=== PATIENT | female | born 1970 | race African-American/Black ===

== ENCOUNTER 2016-12-01 18:10 | Emergency (ER) | payer OTHER ==
[~2016-12-01] VITALS: Ht 165.1 cm; Wt 77.1 kg
[~2016-12-01 18:10] MED LIST: AFRIN15 ML NASAL; ALBUTEROL SULF8.5 GM INH; AMOXICILLIN500 MG ORAL; AZITHROMYCIN250 MG ORAL; BENADRYL25 MG ORAL; BENADRYL25 MG PO; BENTYL10 MG ORAL; CEPHALEXIN500 MG ORAL; CIPROFLOXACIN500 M2 ORAL; CLINDAMYCIN HC300 MG ORAL; CYCLOBENZAPRINE10 MG ORAL; DEBROX15 M1 OT; FLUCONAZOLE150 MG ORAL; HYDROCORTISONE28 G2 TP; IBUPROFEN200 M2 ORAL; IBUPROFEN600 MG ORAL; LEVAQUIN500 MG ORAL; LIDOCAINE5 GM TP; METROGEL-VAGINA70 G1 VG; MOTRIN600 MG ORAL; MUCINEX1200 MG PO; NAPROSYN500 M1 ORAL; NITROFURANTOIN100 M2 ORAL; NKM; NORCO 5-325 TA1 EACH ORAL; PERCOCET 5-3251 EACH ORAL; PHENAZOPYRIDIN200 MG ORAL; PREDNISONE20 MG ORAL; TRAMADOL HCL50 MG ORAL; TYLENOL EXTRA500 MG ORAL; ZOFRAN4 MG ORAL
[2016-12-01 18:20] VITALS: BP 138/84
--- NOTE | 2016-12-01 18:46 | Emergency Room Report ---
History of Present Illness General Chief Complaint: Edema Source: Patient Present Illness HPI 46 YO Female presents to the ED c/o Burning and tingling sensation in the bilateral feet x 1.5 weeks. denies hx of DM, denies trauma. Patient states she believes she a normal diet, and does not take daily multivitamin. Patient denies bleeding from the, skin color changes, increase in temperature palpation to the lower extremities. Patient reports that at her job she stands and walks for many hours at a time and notices that the end of the day her feet are typically swollen. PT states feet are sensitive and burning sensations will awake her from her sleep. Pt. denies hx of gout. Patient states that today her feet have bilateral burning sensation where she could not even tolerate wearing her tennis shoes. Denies gross loss of sensation or gross motor movements of the extremities, incontinence of bowel or bladder. Denies CP, Palpitations, LOC, AMS, dizziness, Changes in Vision, Sensation, paresthesias, or a sudden severe headache. Allergies: Coded Allergies: NO KNOWN ALLERGIES (Unverified Allergy, Unknown, 08/23/15) Patient History Past Medical History: see triage record Past Surgical History: none Pertinent Family History: none Last Menstrual Period: 11/08/2016 Now: No : 5 Para: 2 Immunizations: UTD Reviewed Nursing Documentation: PMH: Agreed, PSxH: Agreed Nursing Documentation-PMH Past Medical History: No History, Except For Hx Gastrointestinal Problems: No - Rt ovarian cyst Review of Systems All Other Systems: negative except mentioned in HPI - ROS was limited due to Poor pt. cooperation Physical Exam Vital Signs Date Time Temp Pulse Resp B/P Pulse Ox O2 Delivery O2 Flow Rate FiO2 12/01/16 18:20 98.4 78 14 138/84 100 Room Air Sp02 EP Interpretation: reviewed, normal General Appearance: no apparent distress, alert, GCS 15, non-toxic Head: normocephalic, atraumatic Eyes: bilateral eye PERRL, bilateral eye normal inspection ENT: hearing grossly normal, normal pharynx, no angioedema, normal voice Neck: full range of motion, supple/symm/no masses Respiratory: lungs clear, normal breath sounds, speaking full sentences Cardiovascular #1: regular rate, rhythm, no edema, normal capillary refill Musculoskeletal: back normal, gait/station normal, normal range of motion, other - no rashes, pt. is vascularly intact, no obvious swelling, no evidence to suggest infection., tender - TTP to superficial light touch of the Skin , no bony ttp, no obvious deformities. Neurologic: alert, oriented x3, responsive, motor strength/tone normal, sensory intact, normal gait, speech normal Psychiatric: judgement/insight normal, memory normal, mood/affect normal, no suicidal/homicidal ideation Skin: normal color, no rash, warm/dry, well hydrated, other - no rashes, pt. is vascularly intact, no obvious swelling, no evidence to suggest infection. Medical Decision Making PA Attestation Dr. Garber is my supervising Physician whom patient management has been discussed with. Diagnostic Impression: Primary Impression: Paresthesia ER Course 46 YO Female presents to the ED c/o Burning and tingling sensation in the bilateral feet x 1.5 weeks. denies hx of DM, denies trauma. Patient states she believes she a normal diet, and does not take daily multivitamin. Patient denies bleeding from the, skin color changes, increase in temperature palpation to the lower extremities. Patient reports that at her job she stands and walks for many hours at a time and notices that the end of the day her feet are typically swollen. Patient states that today her feet have bilateral burning sensation where she could not even tolerate wearing her tennis shoes. Ddx considered but are not limited to Neuropathy, paresthesia, electrolyte imbalance, , stroke, DVT, cyanocobalamin deficiency. Vital signs: are WNL, pt. is afebrile H&PE are most consistent with paresthesias of the LE's bilaterally , no rashes , pt. is vascularly intact, no obvious swelling, no evidence to suggest infection. ORDERS: -AccuCheck: 109 ED INTERVENTIONS: -Gabapentin PO - D/w pt. to follow up with Neurologist if conservative treatment does not relieve symptoms or for further evaluation. DISCHARGE: At this time pt. is stable for d/c to home. Will provide printed patient care instructions, and any necessary prescriptions. Care plan and follow up instructions have been discussed with the patient prior to discharge. Last Vital Signs Date Time Temp Pulse Resp B/P Pulse Ox O2 Delivery O2 Flow Rate FiO2 12/01/16 18:30 80 16 Room Air 12/01/16 18:20 98.4 138/84 100 Disposition: HOME, SELF-CARE Condition: Stable Scripts Ibuprofen* (MOTRIN*) 600 Mg Tablet 600 MG ORAL THREE TIMES A DAY, #30 TAB 0 Refills Prov: Tiffani Barreto 12/01/16 Gabapentin* (GABAPENTIN*) 100 Mg Capsule 100 MG ORAL BID for 14 Days, #28 CAP Prov: Tiffani Barreto 12/01/16 Multivitamins* (MULTIVITAMINS*) 1 Each Tablet 1 TAB ORAL DAILY for 30 Days, #30 TAB 0 Refills Prov: Tiffani Barreto 12/01/16 Patient Instructions: Paresthesia, [id number], Peripheral Edema Additional Instructions: Take medications as directed. Follow up with PCP in 3-5 days, NEUROLOGIST Consultation is recommended. Return sooner to ED if new symptoms occur, or current symptoms become worse. - Please note that this Emergency Department Report was dictated using [employer] setter technology software, occasionally this can lead to erroneous entry secondary to interpretation by the dictation equipment. Tiffani Barreto Dec 01, 2016 18:46
[2016-12-01] MEDS ORDERED: IBUPROFEN600 MG ORAL (19:10)
[2016-12-01] MEDS ORDERED: GABAPENTIN100 MG ORAL (19:10)
[2016-12-01] MEDS ORDERED: MULTIVITAMINS1 EAC2 ORAL (19:10)
[2016-12-01 19:20] VITALS: BP 130/80
== END 2016-12-01 19:22 | disposition home or self-care (01) ==
LOC: EMR 19:15
DX: R20.9 Unspecified disturbances of skin sensation (principal)
CPT/HCPCS: 82962; 99284

== ENCOUNTER 2017-02-23 15:36 | Emergency (ER) | payer OTHER ==
[~2017-02-23] VITALS: Ht 162.6 cm; Wt 82.6 kg
[~2017-02-23 15:36] MED LIST changes: +GABAPENTIN100 MG ORAL; +MULTIVITAMINS1 EAC2 ORAL
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
[2017-02-23 16:17] VITALS: BP 126/88
[2017-02-23 17:20] VITALS: BP 124/82
[2017-02-23] MEDS ORDERED: IBUPROFEN600 MG ORAL (17:21)
[2017-02-23 17:30] VITALS: BP 126/88
--- NOTE | 2017-02-24 09:44 | Diagnostic Imaging Report ---
Indication: Left forearm pain Technique: XRAY FOREARM 2 VIEWS LEFT Comparison: None Findings: There is no gross fracture or dislocation. Bone mineralization is normal. Soft tissues are grossly unremarkable. Impression: No gross fracture or dislocation.
--- NOTE | 2017-02-26 08:39 | Diagnostic Imaging Report ---
Indication: Left hand pain Technique: XRAY HAND MIN 3V LEFT Comparison: None Findings: Examination is not optimized for evaluation of the wrist. There is no gross fracture or dislocation. Bone mineralization is normal. Soft tissues are grossly unremarkable. Impression: No gross fracture or dislocation. Clinical correlation recommended.
== END 2017-02-23 17:30 | disposition home or self-care (01) ==
LOC: EMR 16:30
DX: M79.632 Pain in left forearm (principal); M79.642 Pain in left hand; V49.40XA Driver injured in collision with unspecified motor vehicles in traffic accident, initial encounter; Y92.410 Unspecified street and highway as the place of occurrence of the external cause
CPT/HCPCS: 99284

== ENCOUNTER 2017-02-25 20:33 | Emergency (ER) | payer OTHER ==
[~2017-02-25] VITALS: Ht 162.6 cm; Wt 82.6 kg
[2017-02-25 20:53] VITALS: BP 148/79
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
[2017-02-25] MEDS ORDERED: Ketorolac 60mg Inj IM ONE (21:30)
[2017-02-25] MEDS ORDERED: ACETAMINOPHEN-1 EAC1 ORAL (21:48)
[2017-02-25 21:56] VITALS: BP 128/72
[2017-02-25 21:57] VITALS: BP 128/72
--- NOTE | 2017-02-26 09:06 | Diagnostic Imaging Report ---
Indication: Chest pain Technique: Single portable AP view of the chest. Findings: Comparison: 09/28/2014 The bones and extra pulmonary soft tissues, cardiomediastinal silhouette, pulmonary vasculature and parenchyma, and pleural surfaces remain unremarkable. IMPRESSION: Negative portable AP chest, unchanged.
== END 2017-02-25 22:01 | disposition home or self-care (01) ==
LOC: EMR 21:10
DX: R07.89 Other chest pain (principal); R05 Cough
CPT/HCPCS: 71010; 96372; 99283

== ENCOUNTER 2017-04-18 22:13 | Emergency (ER) | payer SELFPAY ==
[~2017-04-18] VITALS: Ht 160 cm; Wt 81.6 kg
[~2017-04-18 22:13] MED LIST changes: +ACETAMINOPHEN-1 EAC1 ORAL
[2017-04-18 22:30] VITALS: BP 105/63
[2017-04-18] MEDS ORDERED: Ketorolac 30mg Inj IV ONE (22:45)
--- NOTE | 2017-04-18 22:46 | Emergency Room Report ---
History of Present Illness General Chief Complaint: General Complaint Source: Patient Present Illness HPI Patient presents with 3 days of bilateral ankle pain. She states is severe. Burning. Doesn't radiate into her calfs. She's had this once before but not as severe. She had to leave work yesterday because the pain was so severe. She was able to drive herself here. She has no history of gout or arthritis. Has family history of arthritis. She denies any kidney or cardiac disease. She tried taking ibuprofen earlier today. This helped a little bit with the pain. Denies any fevers or shortness of breath. 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 Reviewed Nursing Documentation: PMH: Agreed, PSxH: Agreed Nursing Documentation-PMH Past Medical History: No Stated History Hx Gastrointestinal Problems: No - Rt ovarian cyst Review of Systems All Other Systems: negative except mentioned in HPI Physical Exam Vital Signs Date Time Temp Pulse Resp B/P Pulse Ox O2 Delivery O2 Flow Rate FiO2 04/18/17 22:20 86 16 105/63 99 Room Air Sp02 EP Interpretation: reviewed, normal General Appearance: well appearing, no apparent distress, GCS 15 Head: normocephalic Eyes: bilateral eye PERRL, bilateral eye normal inspection ENT: moist mucus membranes Neck: supple Respiratory: lungs clear, normal breath sounds Cardiovascular #1: regular rate, rhythm Cardiovascular #2: 2+ radial (R) Gastrointestinal: normal inspection, normal bowel sounds, non tender, no mass, non-distended Musculoskeletal: back normal, digits/nails normal, swelling - bilateral ankles Neurologic: alert, oriented x3, grossly normal Psychiatric: mood/affect normal Skin: normal inspection, warm/dry, other - no erythema or warmth of ankles Medical Decision Making Diagnostic Impression: Primary Impression: Bilateral ankle pain Qualified Codes: M25.571 - Pain in right ankle and joints of right foot; M25.572 - Pain in left ankle and joints of left foot Additional Impression: Suspicion of pseudogout ER Course The patient has bilateral ankle pain. There is some swelling there. Differential includes gout, pseudogout was tendinitis, congestive heart failure or renal failure. Evaluation needs to be undertaken with labs and uric acid. The patient be treated with Toradol and Colchicine. Uric acid normal. WBC elevated (though no clinical signs of infection). Xrays with effusions in ankles. Pain improved. Ambulatory. Patient stable for outpatient observation and treatment. Laboratory Tests Test 04/18/17 23:15 White Blood Count 14.1 K/UL (4.8-10.8) H Red Blood Count 4.18 M/UL (4.20-5.40) L Hemoglobin 11.8 G/DL (12.0-16.0) L Hematocrit 36.3 % (37.0-47.0) L Mean Corpuscular Volume 87 FL (80-99) Mean Corpuscular Hemoglobin 28.1 PG (27.0-31.0) Mean Corpuscular Hemoglobin Concent 32.4 G/DL (32.0-36.0) Red Cell Distribution Width 14.2 % (11.6-14.8) Platelet Count 591 K/UL (150-450) H Mean Platelet Volume 5.4 FL (6.5-10.1) L Neutrophils (%) (Auto) 67.5 % (45.0-75.0) Lymphocytes (%) (Auto) 21.5 % (20.0-45.0) Monocytes (%) (Auto) 6.6 % (1.0-10.0) Eosinophils (%) (Auto) 3.5 % (0.0-3.0) H Basophils (%) (Auto) 0.9 % (0.0-2.0) Sodium Level 137 mEQ/L (135-145) Potassium Level 3.3 mEQ/L (3.4-4.9) L Chloride Level 98 mEQ/L (98-107) Carbon Dioxide Level 29 mEQ/L (20-30) Anion Gap 10 (5-15) Blood Urea Nitrogen 5 mg/dL (7-23) L Creatinine 0.8 mg/dL (0.5-0.9) Estimate Glomerular Filtration Rate > 60 mL/min (>60) Glucose Level 117 mg/dL (74-106) H Uric Acid 5.2 mg/dL (3.0-7.5) Calcium Level 9.1 mg/dL (8.6-10.2) Total Bilirubin < 0.2 mg/dL (0.0-1.2) Aspartate Amino Transferase (AST) 13 U/L (5-40) Alanine Aminotransferase (ALT) 7 U/L (3-33) Alkaline Phosphatase 131 U/L (35-104) H Total Creatine Kinase 137 U/L (26-140) Pro-B-Type Natriuretic Peptide 22 pg/mL (0-125) Total Protein 7.4 g/dL (6.6-8.7) Albumin 4.1 g/dL (3.5-5.2) Globulin 3.3 g/dL Albumin/Globulin Ratio 1.2 (1.0-2.7) Other X-Ray Diagnostic Results Other X-Ray Diagnostic Results #1: X-Ray ordered: ankle L # of Views/Limited Vs Complete: 3 View Indication: Pain Interpretation: no dislocation, no fractures, other - effusion Impression: Other Interpreting ER Provider: electronic sign Cosme Teresa MD Other X-Ray Diagnostic Results #2: X-Ray ordered: ankle R # of Views/Limited Vs Complete: 3 View Indication: Pain Interpretation: no dislocation, no fractures, other - effusion Impression: Other Interpreting ER Provider: electronic sign Cosme Teresa MD Last Vital Signs Date Time Temp Pulse Resp B/P Pulse Ox O2 Delivery O2 Flow Rate FiO2 04/19/17 01:40 98.1 81 13 111/65 99 Room Air Status: improved Disposition: HOME, SELF-CARE Condition: Improved Scripts Ibuprofen* (MOTRIN*) 600 Mg Tablet 600 MG ORAL Q8H Y for For Pain, #20 TAB 0 Refills Prov: Cosme Teresa M.D. 04/19/17 Colchicine (Colchicine) 0.6 Mg Capsule 0.6 MG PO Q6HR Y for pain and swelling, #20 CAP Prov: Cosme Teresa M.D. 04/19/17 Tramadol Hcl* (ULTRAM*) 50 Mg Tablet 50 MG ORAL Q6H Y for For Pain, #10 TAB 0 Refills Prov: Cosme Teresa M.D. 04/19/17 Cosme Teresa M.D. Apr 18, 2017 22:46
[2017-04-18 23:35] LABS: BASOPHILS % (AUTO) 0.9 % (0.0-2.0); EOSINOPHILS % (AUTO) 3.5 % (0.0-3.0); LYMPHOCYTES % (AUTO) 21.5 % (20.0-45.0); MEAN CORPUSCULAR HEMOGLOBIN 28.1 PG (27.0-31.0); MEAN CORPUSCULAR HGB CONC 32.4 G/DL (32.0-36.0); MEAN CORPUSCULAR VOLUME 87 FL (80-99); MEAN PLATELET VOLUME 5.4 FL (6.5-10.1); MONOCYTES % (AUTO) 6.6 % (1.0-10.0); NEUTROPHILS % (AUTO) 67.5 % (45.0-75.0); PLATELET COUNT 591 K/UL (150-450); RED BLOOD COUNT 4.18 M/UL (4.20-5.40); RED CELL DISTRIBUTION WIDTH 14.2 % (11.6-14.8); WHITE BLOOD COUNT 14.1 K/UL (4.8-10.8)
[2017-04-19 00:09] LABS: ALANINE AMINOTRANSFERASE 7 U/L (3-33); ALBUMIN/GLOBULIN RATIO 1.2 (1.0-2.7); ANION GAP 10 (5-15); ASPARTATE AMINO TRANSFERASE 13 U/L (5-40); CALCIUM 9.1 mg/dL (8.6-10.2); CARBON DIOXIDE 29 mEQ/L (20-30); CHLORIDE 98 mEQ/L (98-107); CREATININE 0.8 mg/dL (0.5-0.9); GLOMERULAR FILTRATION RATE > 60 mL/min (>60); HEMOLYSIS 0; POTASSIUM 3.3 mEQ/L (3.4-4.9); SODIUM 137 mEQ/L (135-145); TOTAL PROTEIN 7.4 g/dL (6.6-8.7); URIC ACID 5.2 mg/dL (3.0-7.5)
[2017-04-19 00:30] VITALS: BP 109/69
[2017-04-19] MEDS ORDERED: COLCHICINE0.6 M1 PO (01:27)
[2017-04-19] MEDS ORDERED: IBUPROFEN600 MG ORAL (01:27)
[2017-04-19] MEDS ORDERED: TRAMADOL HCL50 MG ORAL (01:27)
[2017-04-19 01:40] VITALS: BP 111/65
--- NOTE | 2017-04-19 11:41 | Diagnostic Imaging Report ---
Indication: Pain right ankle Comparison: None Findings: 3 views of the right ankle obtained. No acute fracture, malalignment, periostitis, or osteochondral defects are identified. There is soft tissue swelling present. Impression: No acute fracture identified
--- NOTE | 2017-04-19 11:41 | Diagnostic Imaging Report ---
Indication: left ankle pain Comparison: None Findings: 3 views of the left ankle obtained. No acute fracture, malalignment, periostitis, or osteochondral defects are identified. Soft tissue swelling is present. Impression: No acute fracture.
== END 2017-04-19 01:40 | disposition home or self-care (01) ==
LOC: EMR 23:00
DX: M25.572 Pain in left ankle and joints of left foot (principal); M25.571 Pain in right ankle and joints of right foot
CPT/HCPCS: 36415; 73610; 80053; 82550; 83880; 84550; 85025; 96374; 99284; J1885

== ENCOUNTER 2017-05-06 20:12 | Emergency (ER) | payer SELFPAY ==
[~2017-05-06] VITALS: Ht 162.6 cm; Wt 81.6 kg
[~2017-05-06 20:12] MED LIST changes: +COLCHICINE0.6 M1 PO
[2017-05-06 20:30] VITALS: BP 120/73
[2017-05-06] MEDS ORDERED: NEURONTIN100 MG ORAL (21:13)
--- NOTE | 2017-05-06 21:14 | Emergency Room Report ---
History of Present Illness General Chief Complaint: Edema Source: Patient Present Illness HPI Is a 46-year-old female with no significant past medical history. She presents with chief complaint of bilateral swelling to the lower extremity. Worse by been in the day. Better when she rests an elevated. Denies any trauma. His been ongoing for couple months. She was here about 2 weeks ago and was told was gallops. Labs show normal BNP. Patient still having problem this was she came back. Did not fill any of her medication because her insurance didn't cover it. Allergies: Coded Allergies: NO KNOWN ALLERGIES (Unverified Allergy, Unknown, 08/23/15) Patient History Past Medical History: see triage record, old chart reviewed Past Surgical History: other Pertinent Family History: none Social History: Denies: smoking Last Menstrual Period: now Now: No Reviewed Nursing Documentation: PMH: Agreed, PSxH: Agreed Nursing Documentation-PMH Past Medical History: No Stated History Hx Gastrointestinal Problems: No - Rt ovarian cyst Review of Systems Eye: Denies: eye pain, blurred vision ENT: Denies: ear pain, nose congestion, throat swelling Respiratory: Denies: cough, shortness of breath Cardiovascular: Denies: chest pain, palpitations Gastrointestinal: Denies: abdominal pain, diarrhea, nausea, vomiting Musculoskeletal: Reports: joint pain, Denies: back pain Skin: Denies: rash Neurological: Denies: headache, numbness Endocrine: Denies: increased thirst, increased urine Hematologic/Lymphatic: Denies: easy bruising All Other Systems: negative except mentioned in HPI Physical Exam Vital Signs Date Time Temp Pulse Resp B/P (MAP) Pulse Ox O2 Delivery O2 Flow Rate FiO2 05/06/17 20:26 98.2 82 20 120/73 100 Room Air vitals normal Sp02 EP Interpretation: reviewed, normal General Appearance: well appearing, no apparent distress, alert Head: normocephalic, atraumatic Eyes: bilateral eye PERRL, bilateral eye EOMI ENT: hearing grossly normal, normal pharynx Neck: full range of motion, supple, no meningismus Respiratory: chest non-tender, lungs clear, normal breath sounds Cardiovascular #1: regular rate, rhythm, no murmur Gastrointestinal: normal bowel sounds, non tender, no mass, no organomegaly, no bruit, non-distended Musculoskeletal: back normal, gait/station normal, normal range of motion, other - There is some puffiness to bilateral lateral malleoli. No edema however. No pitting edema. Full range of motion. Joints stable. No tenderness. Psychiatric: mood/affect normal Skin: warm/dry Medical Decision Making Diagnostic Impression: Primary Impression: Peripheral edema ER Course Patient with peripheral edema. She show me a picture she took when the ankle was swollen. Again this is usually butt end of the day after working and standing on it. I see no evidence of DVT. No evidence of CHF. This is dependent edema. We'll discharge home. No evidence of gout either. No evidence of septic joint. Last Vital Signs Date Time Temp Pulse Resp B/P (MAP) Pulse Ox O2 Delivery O2 Flow Rate FiO2 05/06/17 20:30 82 20 Room Air 05/06/17 20:26 98.2 120/73 100 Status: unchanged Disposition: HOME, SELF-CARE Condition: Stable Scripts Gabapentin* (NEURONTIN*) 100 Mg Capsule 100 MG ORAL THREE TIMES A DAY, #30 CAP 0 Refills Prov: ZABRINA BLOUNT M.D. 05/06/17 Patient Instructions: Peripheral Edema Additional Instructions: Followup with your Dr. in 7 days. Elevate her leg. Recommend using a compression stocking when you work. This would help with the swelling. Return if symptom worsen. ZABRINA BLOUNT M.D. May 06, 2017 21:14
[2017-05-06 21:23] VITALS: BP 120/73
== END 2017-05-06 21:23 | disposition home or self-care (01) ==
LOC: EMR 21:10
DX: R60.9 Edema, unspecified (principal)
CPT/HCPCS: 99283

== ENCOUNTER 2017-06-24 16:52 | Emergency (ER) | payer SELFPAY ==
[~2017-06-24] VITALS: Ht 162.6 cm; Wt 79.4 kg
[~2017-06-24 16:52] MED LIST changes: +NEURONTIN100 MG ORAL
[2017-06-24] MEDS ORDERED: Dexamethasone 20mg/5ml IM ONE (17:30)
[2017-06-24] MEDS ORDERED: Metoclopramide 10mg/10ml Liq NG ONE (17:30)
[2017-06-24] MEDS ORDERED: Ketorolac 60mg Inj IM ONE (17:30)
--- NOTE | 2017-06-24 17:34 | Emergency Room Report ---
History of Present Illness General Chief Complaint: Headache Source: Patient Present Illness HPI Patient is a 47-year-old female who presents today with complaints of "feeling hot" and a headache for the last 3 days. Patient states her symptoms began after getting the flu shot several days ago. She states the headache is behind her eyes and 7/10 in severity. She has not taken medication for the pain. She denies any changes in vision, photophobia, nausea, vomiting or associated symptoms. Allergies: Coded Allergies: NO KNOWN ALLERGIES (Unverified Allergy, Unknown, 08/23/15) Patient History Last Menstrual Period: end may Now: No Reviewed Nursing Documentation: PMH: Agreed, PSxH: Agreed Nursing Documentation-PMH Past Medical History: No History, Except For Hx Gastrointestinal Problems: No - Rt ovarian cyst Review of Systems Neurological: Reports: headache All Other Systems: negative except mentioned in HPI Physical Exam Vital Signs Date Time Temp Pulse Resp B/P (MAP) Pulse Ox O2 Delivery O2 Flow Rate FiO2 06/24/17 17:04 98.2 76 18 132/85 98 Room Air Sp02 EP Interpretation: reviewed, normal General Appearance: no apparent distress, alert, GCS 15, non-toxic Head: normocephalic, atraumatic Eyes: bilateral eye normal inspection, bilateral eye PERRL ENT: hearing grossly normal, normal pharynx, no angioedema, normal voice Neck: full range of motion, supple/symm/no masses Respiratory: chest non-tender, lungs clear, normal breath sounds, speaking full sentences Cardiovascular #1: regular rate, rhythm, no edema Cardiovascular #2: 2+ carotid (R), 2+ carotid (L), 2+ radial (R), 2+ radial (L) , 2+ dorsalis pedis (R), 2+ dorsalis pedis (L) Gastrointestinal: normal bowel sounds, non tender, soft, non-distended, no guarding, no rebound Rectal: deferred Genitourinary: normal inspection, no CVA tenderness Musculoskeletal: back normal, gait/station normal, normal range of motion, non- tender, calf tenderness Neurologic: alert, oriented x3, responsive, 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 Pathak Diagnostic Impression: Primary Impression: Headache Additional Impression: Malaise ER Course Low index of suspicion for CVA or SAH as patient has no focal deficits and previous headaches stating this feels similar. Patient with a normal neurologic examination and headache improving after medications on reevaluation at 1835. Pt is discharged to home with fioricet and given resources for outpatient follow up. Reevaluation Time: 18:35 Last Vital Signs Date Time Temp Pulse Resp B/P (MAP) Pulse Ox O2 Delivery O2 Flow Rate FiO2 06/24/17 17:04 98.2 76 18 132/85 98 Room Air Status: improved Disposition: HOME, SELF-CARE Condition: Stable Scripts Acetamin/Butalbital/Caffeine* (FIORICET*) 1 Ea Tab 1 TAB ORAL Q6H, #15 TAB 0 Refills Prov: Lakeisha Choi 06/24/17 Patient Instructions: General Headache Without Cause Lakeisha Choi Jun 24, 2017 17:34
[2017-06-24 18:21] VITALS: BP 130/84
[2017-06-24] MEDS ORDERED: FIORICET1 EA ORAL (18:36)
[2017-06-24 18:43] VITALS: BP 130/84
== END 2017-06-24 18:45 | disposition home or self-care (01) ==
LOC: EMR 17:35
DX: R51 Headache (principal); R53.81 Other malaise
CPT/HCPCS: 81025; 96372; 99284; J1100

== ENCOUNTER 2017-09-01 18:01 | Emergency (ER) | payer SELFPAY ==
[~2017-09-01] VITALS: Ht 162.6 cm; Wt 77.1 kg
[~2017-09-01 18:01] MED LIST changes: +FIORICET1 EA ORAL
[2017-09-01] MEDS ORDERED: NKM (18:19)
[2017-09-01 19:08] LABS: BASOPHILS % (AUTO) 1.1 % (0.0-2.0); EOSINOPHILS % (AUTO) 2.7 % (0.0-3.0); LYMPHOCYTES % (AUTO) 24.2 % (20.0-45.0); MEAN CORPUSCULAR HEMOGLOBIN 26.3 PG (27.0-31.0); MEAN CORPUSCULAR HGB CONC 30.3 G/DL (32.0-36.0); MEAN CORPUSCULAR VOLUME 87 FL (80-99); MEAN PLATELET VOLUME 5.1 FL (6.5-10.1); MONOCYTES % (AUTO) 5.7 % (1.0-10.0); NEUTROPHILS % (AUTO) 66.3 % (45.0-75.0); PLATELET COUNT 555 K/UL (150-450); RED BLOOD COUNT 4.31 M/UL (4.20-5.40); RED CELL DISTRIBUTION WIDTH 13.3 % (11.6-14.8); WHITE BLOOD COUNT 12.6 K/UL (4.8-10.8)
[2017-09-01] MEDS ORDERED: Albuterol/Ipratropium 3ml neb HHN ONE (19:15)
[2017-09-01 19:22] LABS: ANION GAP 5 mmol/L (5-15); CALCIUM 7.9 MG/DL (8.5-10.1); CARBON DIOXIDE 32 MMOL/L (21-32); CHLORIDE 103 MMOL/L (98-107); CREATININE 0.9 MG/DL (0.55-1.30); GLOMERULAR FILTRATION RATE > 60 mL/min (>60); POTASSIUM 3.2 MMOL/L (3.5-5.1); SODIUM 139 MMOL/L (136-145)
[2017-09-01 19:34] LABS: ALANINE AMINOTRANSFERASE 12 U/L (12-78); ALBUMIN/GLOBULIN RATIO 0.8 (1.0-2.7); ASPARTATE AMINO TRANSFERASE 11 U/L (15-37); CKMB 1.3 NG/ML (0.0-3.6); TOTAL PROTEIN 7.6 G/DL (6.4-8.2)
[2017-09-01 19:52] LABS: APPEARANCE,URINE SLIGHTLY CLOUDY; KETONES,URINE NEGATIVE (NEGATIVE); LEUKOCYTE ESTERASE ,URINE 1+ (NEGATIVE); NITRITE,URINE NEGATIVE (NEGATIVE); PH,URINE 6 (4.5-8.0); PROTEIN,URINE NEGATIVE (NEGATIVE); UROBILINOGEN,URINE NORMAL MG/DL (0.0-1.0)
[2017-09-01 20:01] LABS: BACTERIA,URINE FEW /HPF; SQUAMOUS EPITHELIAL CELL,UR MODERATE /LPF (NONE/OCC)
[2017-09-01] MEDS ORDERED: KEFLEX500 MG ORAL (20:04)
[2017-09-01] MEDS ORDERED: PRILOSEC10 M1 ORAL (20:05)
[2017-09-01 20:14] VITALS: BP 124/61
[2017-09-01 20:58] VITALS: BP 117/67
--- NOTE | 2017-09-02 10:20 | Diagnostic Imaging Report ---
Indication: Chest pain, shortness of breath Technique: XRAY Chest 1v Comparison: 02/25/2017 Findings: Low lung volumes artifactually exaggerate heart size and vascular markings. Heart size and mediastinal contours are likely stable allowing for differences in technique. There is bronchovascular crowding in the lung bases. There is no definite focal consolidation, no pleural effusion or pneumothorax. No acute osseous abnormality seen. Impression: Limited exam as above. No definite radiographic evidence of acute cardiopulmonary disease. Repeat exam may be obtained for better evaluation as clinically indicated.
--- NOTE | 2017-09-02 14:50 | Cardiology Report ---
APPROVED REPORT EKG Measurement Heart [id number] Normal sinus rhythm Normal ECG
--- NOTE | 2017-09-03 07:22 | Emergency Room Report ---
History of Present Illness General Chief Complaint: Chest Pain Source: Patient Present Illness HPI Patient is a 47-year-old female presented after increased chest pain. The patient gradual onset of symptoms over the past 3 days. Patient was noted to have symptoms for the past 3 days. The patient had not been vomiting. She denies any fever. She reported having some nonproductive cough. She denied any leg pain or swelling. She denied travel. Allergies: Coded Allergies: NO KNOWN ALLERGIES (Unverified Allergy, Unknown, 08/23/15) Patient History Past Medical History: see triage record Last Menstrual Period: 08/13/17. Now: No Reviewed Nursing Documentation: PMH: Agreed, PSxH: Agreed Review of Systems All Other Systems: negative except mentioned in HPI Physical Exam Vital Signs Date Time Temp Pulse Resp B/P (MAP) Pulse Ox O2 Delivery O2 Flow Rate FiO2 09/01/17 18:17 98.1 77 17 141/90 100 Room Air 09/01/17 19:39 21 General Appearance: well appearing, no apparent distress, alert, GCS 15 Head: normocephalic, atraumatic ENT: hearing grossly normal, normal voice Neck: full range of motion, supple Respiratory: chest non-tender, lungs clear, no respiratory distress, speaking full sentences Musculoskeletal: no calf tenderness Neurologic: normal gait Psychiatric: mood/affect normal Skin: no rash Medical Decision Making Diagnostic Impression: Primary Impression: Chest pain Additional Impression: UTI (urinary tract infection) ER Course patient presented for chest pain. Differential diagnosis included but was not limited to acute coronary syndrome, pulmonary embolism, pneumonia, aortic dissection, shingles, pneumothorax, aortic dissection, esophageal rupture, pericarditis. Because of complexity of patient's case laboratory testing and imaging studies were ordered. Patient was given breathing treatments. She was given antibiotic. Laboratory testing showed evidence of a urinary infection.The patient's symptom time course and symptom are consistent with noncardiac chest pain. The patient is advised to follow up with primary care doctor in 1-2 days. Patient is advised to return if any worsening condition or if any changes in status that are concerning. This report is dictated with [employer] face and fill packer software which may occasionally lead to discrepancies related to use of this software. Labs Test 09/01/17 18:50 09/01/17 19:25 White Blood Count 12.6 K/UL (4.8-10.8) Red Blood Count 4.31 M/UL (4.20-5.40) Hemoglobin 11.3 G/DL (12.0-16.0) Hematocrit 37.4 % (37.0-47.0) Mean Corpuscular Volume 87 FL (80-99) Mean Corpuscular Hemoglobin 26.3 PG (27.0-31.0) Mean Corpuscular Hemoglobin Concent 30.3 G/DL (32.0-36.0) Red Cell Distribution Width 13.3 % (11.6-14.8) Platelet Count 555 K/UL (150-450) Mean Platelet Volume 5.1 FL (6.5-10.1) Neutrophils (%) (Auto) 66.3 % (45.0-75.0) Lymphocytes (%) (Auto) 24.2 % (20.0-45.0) Monocytes (%) (Auto) 5.7 % (1.0-10.0) Eosinophils (%) (Auto) 2.7 % (0.0-3.0) Basophils (%) (Auto) 1.1 % (0.0-2.0) D-Dimer 0.35 mg/L FEU (0.00-0.49) Sodium Level 139 MMOL/L (136-145) Potassium Level 3.2 MMOL/L (3.5-5.1) Chloride Level 103 MMOL/L (98-107) Carbon Dioxide Level 32 MMOL/L (21-32) Anion Gap 5 mmol/L (5-15) Blood Urea Nitrogen 6 mg/dL (7-18) Creatinine 0.9 MG/DL (0.55-1.30) Estimat Glomerular Filtration Rate > 60 mL/min (>60) Glucose Level 111 MG/DL (74-106) Calcium Level 7.9 MG/DL (8.5-10.1) Total Bilirubin 0.2 MG/DL (0.2-1.0) Aspartate Amino Transf (AST/SGOT) 11 U/L (15-37) Alanine Aminotransferase (ALT/SGPT) 12 U/L (12-78) Alkaline Phosphatase 119 U/L (46-116) Total Creatine Kinase 107 U/L (26-308) Creatine Kinase MB 1.3 NG/ML (0.0-3.6) Creatine Kinase MB Relative Index 1.2 Troponin I 0.002 ng/mL (0.000-0.056) Pro-B-Type Natriuretic Peptide 7 pg/mL (0-125) Total Protein 7.6 G/DL (6.4-8.2) Albumin 3.4 G/DL (3.4-5.0) Globulin 4.2 g/dL Albumin/Globulin Ratio 0.8 (1.0-2.7) Urine Color Pale yellow Urine Appearance Slightly cloudy Urine pH 6 (4.5-8.0) Urine Specific Catron 1.015 (1.005-1.035) Urine Protein Negative (NEGATIVE) Urine Glucose (UA) Negative (NEGATIVE) Urine Ketones Negative (NEGATIVE) Urine Occult Blood 2+ (NEGATIVE) Urine Nitrite Negative (NEGATIVE) Urine Bilirubin Negative (NEGATIVE) Urine Urobilinogen Normal MG/DL (0.0-1.0) Urine Leukocyte Esterase 1+ (NEGATIVE) Urine RBC 5-10 /HPF (0 - 2) Urine WBC 2-4 /HPF (0 - 2) Urine Squamous Epithelial Cells Moderate /LPF (NONE/OCC) Urine Bacteria Few /HPF (NONE) Urine HCG, Qualitative Negative EKG Diagnostic Results Rate: normal Rhythm: NSR ST Segments: no acute changes Last Vital Signs Date Time Temp Pulse Resp B/P (MAP) Pulse Ox O2 Delivery O2 Flow Rate FiO2 09/01/17 20:58 98.1 82 22 117/67 100 Room Air 21 Status: improved Disposition: HOME, SELF-CARE Condition: Stable Scripts Omeprazole Magnesium (PRILOSEC) 10 Mg Suspdr.pkt 10 MG ORAL DAILY, #30 PACKET Prov: Lorenzo Garber 09/01/17 Cephalexin* (KEFLEX*) 500 Mg Capsule 500 MG ORAL Q6H, #28 CAP 0 Refills Prov: Lorenzo Garber 09/01/17 Referrals: NOT CHOSEN IPA/MD,REFERRING (PCP) Patient Instructions: Nonspecific Chest Pain Lorenzo Garber Sep 03, 2017 07:22
== END 2017-09-01 21:00 | disposition home or self-care (01) ==
LOC: EMR 18:25
DX: R07.9 Chest pain, unspecified (principal); N39.0 Urinary tract infection, site not specified
CPT/HCPCS: 36415; 71010; 80053; 81003; 81025; 82550; 82553; 83880; 84484; 85025; 85379; 93005; 94640; 94664; 99284; J7620; J8499

== ENCOUNTER 2017-09-16 14:58 | Emergency (ER) | payer SELFPAY ==
[~2017-09-16] VITALS: Ht 162.6 cm; Wt 78.0 kg
[~2017-09-16 14:58] MED LIST changes: +KEFLEX500 MG ORAL; +PRILOSEC10 M1 ORAL
[2017-09-16] MEDS ORDERED: Ipratropium 0.02% Inh Soln 2.5ml UD HHN ONE (15:30)
[2017-09-16] MEDS ORDERED: Albuterol ud Inhalation HHN ONE (15:30)
[2017-09-16] MEDS ORDERED: PREDNISONE20 MG ORAL (16:47)
[2017-09-16] MEDS ORDERED: PROMETHAZINE-D118 ML ORAL (16:47)
[2017-09-16] MEDS ORDERED: IBUPROFEN600 MG ORAL (16:47)
[2017-09-16] MEDS ORDERED: PROAIR HFA8.5 GM INH (16:47)
[2017-09-16 17:02] VITALS: BP 125/75
--- NOTE | 2017-09-16 21:47 | Emergency Room Report ---
History of Present Illness General Chief Complaint: General Complaint Source: Patient Present Illness HPI The patient is a 47-year-old female presenting for 3 days of subjective fever, chills, cough. She denies medical history. She denies any known sick contacts or recent travel. She denies other symptoms including shortness of breath, chest pain, rash, neck pain or stiffness, myalgia, fatigue Allergies: Coded Allergies: NO KNOWN ALLERGIES (Unverified Allergy, Unknown, 08/23/15) Patient History Past Medical History: see triage record Pertinent Family History: none Last Menstrual Period: 08/16/17 Now: No Reviewed Nursing Documentation: PMH: Agreed, PSxH: Agreed Review of Systems All Other Systems: negative except mentioned in HPI Physical Exam Vital Signs Date Time Temp Pulse Resp B/P (MAP) Pulse Ox O2 Delivery O2 Flow Rate FiO2 09/16/17 15:05 98.2 81 17 136/81 100 Room Air 09/16/17 15:57 21 Sp02 EP Interpretation: reviewed, normal General Appearance: no apparent distress, alert, GCS 15, non-toxic Head: normocephalic, atraumatic Eyes: bilateral eye normal inspection, bilateral eye PERRL ENT: hearing grossly normal, normal pharynx, no angioedema, normal voice, uvula midline Neck: full range of motion, supple/symm/no masses Respiratory: chest non-tender, no retraction, no accessory muscle use, speaking full sentences, wheezing - bilat wheezing Cardiovascular #1: regular rate, rhythm, no edema Genitourinary: normal inspection, no CVA tenderness Musculoskeletal: back normal, gait/station normal, normal range of motion, non- tender Neurologic: alert, oriented x3, responsive, motor strength/tone normal, sensory intact, speech normal Psychiatric: judgement/insight normal, memory normal, mood/affect normal, no suicidal/homicidal ideation Skin: normal color, no rash, warm/dry, well hydrated Medical Decision Making PA Attestation Dr. Mock is my supervising physician. Patient management was discussed with my supervising physician Diagnostic Impression: Primary Impression: Bronchitis ER Course The patient is a 47-year-old female presenting for 3 days of subjective fever, chills, cough Differential diagnosis include but not limited to pharyngitis, sinusitis, AOM, bronchitis, PNA PE: afebrile. No tachypnea. No apparent distress. No TTP over maxillary or frontal sinuses. Lungs: diffuse wheezing. No accessory muscle use. No resp distress Heart: RRR, no abnormal heart sounds Ears: external auditory canal clear. Non erythematous. Bilat TM intact. Cone of light present bilat. No bulging of TM. No serous fluid seen. no nasal D/C Nor cervical lymphad No tonsillar exudate. Uvula midline.Oropharynx non erythematous The patient is given a breathing treatment and lung sounds have improved The patient will be discharged home with a prescription for albuterol, prednisone, cough medication, and will FU with PMD Last Vital Signs Date Time Temp Pulse Resp B/P (MAP) Pulse Ox O2 Delivery O2 Flow Rate FiO2 09/16/17 17:02 98.1 88 19 125/75 98 Room Air 09/16/17 17:02 21 Status: improved Disposition: HOME, SELF-CARE Condition: Improved Scripts Ibuprofen* (MOTRIN*) 600 Mg Tablet 600 MG ORAL Q8H Y for For Pain, #30 TAB 0 Refills Prov: TERZIANNINI P.A. 09/16/17 Prednisone* (PREDNISONE*) 20 Mg Tablet 20 MG ORAL DAILY for 5 Days, TAB 0 Refills Prov: TERZIAN,NINI P.A. 09/16/17 Albuterol Sulfate* (PROAIR HFA*) 8.5 Gm Hfa.aer.ad 2 PUFFS INH Q6H, #8.5 GM 0 Refills Prov: TERZIAN,NINI P.A. 09/16/17 D-Methorphan Hb/Prometh Hcl* (PROMETHAZINE-DM SYRUP*) 118 Ml Syrup 5 ML ORAL Q6H Y for For Cough, #118 ML 0 Refills Prov: TERZIAN,NINI P.A. 09/16/17 Patient Instructions: Acute Bronchitis Additional Instructions: I discussed my findings with the patient. All questions and concerns have been answered. Treatment and medication compliance have been addressed. I advised the patient that they need to follow up with PMD in 3-5 days. Return to ED if pain remains or worsens, cough worsens or remains, you notice blood in your sputum, you notice wheezing, you experience a fever, or if needed for any reason. Patient verbalized understanding of discharge instructions. NINI CAM Sep 16, 2017 21:47
== END 2017-09-16 17:02 | disposition home or self-care (01) ==
LOC: EMR 16:10
DX: J40 Bronchitis, not specified as acute or chronic (principal)
CPT/HCPCS: 94640; 94664; 99284

== ENCOUNTER 2017-09-20 19:08 | Emergency (ER) | payer SELFPAY ==
[~2017-09-20] VITALS: Ht 162.6 cm; Wt 78.0 kg
[~2017-09-20 19:08] MED LIST changes: +PROAIR HFA8.5 GM INH; +PROMETHAZINE-D118 ML ORAL
[2017-09-20] MEDS ORDERED: Sodium Chloride 500ML 500 ML IV ONE (19:30)
[2017-09-20] MEDS ORDERED: Solu-MEDROL 125mg Inj IVP ONE (19:30)
[2017-09-20] MEDS ORDERED: Ipratropium 0.02% Inh Soln 2.5ml UD HHN ONE (19:30)
[2017-09-20] MEDS ORDERED: Albuterol ud Inhalation HHN ONE (19:30)
[2017-09-20 19:58] LABS: ANION GAP 8 mmol/L (5-15); BLOOD UREA NITROGEN 6 mg/dL (7-18); CALCIUM 8.7 MG/DL (8.5-10.1); CARBON DIOXIDE 27 MMOL/L (21-32); CHLORIDE 103 MMOL/L (98-107); POTASSIUM 3.1 MMOL/L (3.5-5.1); SODIUM 138 MMOL/L (136-145)
[2017-09-20 20:03] LABS: HEMATOCRIT 33.5 % (37.0-47.0); HEMOGLOBIN 10.2 G/DL (12.0-16.0); LYMPHOCYTES % (AUTO) 24.5 % (20.0-45.0); MEAN CORPUSCULAR VOLUME 87 FL (80-99); MONOCYTES % (AUTO) 6.2 % (1.0-10.0); NEUTROPHILS % (AUTO) 66.3 % (45.0-75.0); PLATELET COUNT 494 K/UL (150-450); RED BLOOD COUNT 3.85 M/UL (4.20-5.40); RED CELL DISTRIBUTION WIDTH 13.7 % (11.6-14.8); WHITE BLOOD COUNT 12.9 K/UL (4.8-10.8)
[2017-09-20 20:09] LABS: ALANINE AMINOTRANSFERASE 8 U/L (12-78); ALBUMIN 3.3 G/DL (3.4-5.0); ALBUMIN/GLOBULIN RATIO 0.8 (1.0-2.7); ALKALINE PHOSPHATASE 118 U/L (46-116); ASPARTATE AMINO TRANSFERASE 11 U/L (15-37); BILIRUBIN,TOTAL 0.3 MG/DL (0.2-1.0)
[2017-09-20] MEDS ORDERED: PREDNISONE20 MG ORAL (20:29)
[2017-09-20] MEDS ORDERED: ALBUTEROL SULF8.5 GM INH (20:29)
[2017-09-20 20:40] VITALS: BP 124/66
[2017-09-20 20:45] VITALS: BP 124/66
--- NOTE | 2017-09-20 22:18 | Emergency Room Report ---
History of Present Illness General Chief Complaint: Chest Pain Source: Patient Present Illness HPI 47-year-old female presents complaining of chest pain x1 day. Feels tightness in her chest with difficulty breathing. Denies any history of hypertension. Denies smoking or drug use. States she's had bronchitis in the past. No other aggravating relieving factors. Denies any other associated symptoms Allergies: Coded Allergies: NO KNOWN ALLERGIES (Unverified Allergy, Unknown, 08/23/15) Patient History Past Medical History: none Past Surgical History: none Pertinent Family History: none Social History: Denies: smoking, alcohol use, drug use Last Menstrual Period: Last month Now: No Immunizations: UTD Reviewed Nursing Documentation: PMH: Agreed, PSxH: Agreed Review of Systems All Other Systems: negative except mentioned in HPI Physical Exam Vital Signs Date Time Temp Pulse Resp B/P (MAP) Pulse Ox O2 Delivery O2 Flow Rate FiO2 09/20/17 19:11 98.4 76 18 145/77 98 Room Air 09/20/17 19:45 21 Sp02 EP Interpretation: reviewed, normal General Appearance: no apparent distress, alert, GCS 15, non-toxic Head: normocephalic, atraumatic Eyes: bilateral eye normal inspection, bilateral eye PERRL ENT: hearing grossly normal, normal pharynx, no angioedema, normal voice Neck: full range of motion, supple/symm/no masses Respiratory: chest non-tender, decreased breath sounds, speaking full sentences Cardiovascular #1: regular rate, rhythm, no edema Cardiovascular #2: 2+ carotid (R), 2+ carotid (L), 2+ radial (R), 2+ radial (L) , 2+ dorsalis pedis (R), 2+ dorsalis pedis (L) Gastrointestinal: normal bowel sounds, non tender, soft, non-distended, no guarding, no rebound Rectal: deferred Genitourinary: normal inspection, no CVA tenderness Musculoskeletal: back normal, gait/station normal, normal range of motion, non- tender Neurologic: alert, oriented x3, responsive, motor strength/tone normal, sensory intact, speech normal Psychiatric: judgement/insight normal, memory normal, mood/affect normal, no suicidal/homicidal ideation Reflexes: 3+ bicep (R), 3+ bicep (L), 3+ tricep (R), 3+ tricep (L), 3+ knee (R) , 3+ knee (L) Skin: normal color, no rash, warm/dry, well hydrated Lymphatic: no adenopathy Medical Decision Making Diagnostic Impression: Primary Impression: Bronchitis ER Course Hospital Course 47-year-old female presents ED complaining of chest tightness Differential diagnoses include: URI, bronchitis, asthma/COPD, pneumonia Clinical course Patient placed on stretcher. After initial history, physical exam reveals an elderly male in no acute distress. Bilateral TM unremarkable. No pharyngeal erythema. No tonsillar exudates. No lymphadenopathy. reduced breath sounds I ordered labs, IV fluids, nebullizer treatments, steroids, ekg, chest x-ray. Labs reviewed-leukocytosis noted, hemoglobin/hematocrit stable, electrolytes okay, trop negative EKG - NSR, no acute ischemic changes interpreted by me Chest x-ray shows no infiltrate On reassessment patient states she feels better with the breathing treatment. Likely bronchitis. Has been here many times for chest pain and workups have been negative. Diagnosis - bronchitis Stable and discharged home with prescriptions for prednisone, albuterol. Instructed to followup with PMD. Return to ED if symptoms recur or worsen Labs Test 09/20/17 19:35 White Blood Count 12.9 K/UL (4.8-10.8) Red Blood Count 3.85 M/UL (4.20-5.40) Hemoglobin 10.2 G/DL (12.0-16.0) Hematocrit 33.5 % (37.0-47.0) Mean Corpuscular Volume 87 FL (80-99) Mean Corpuscular Hemoglobin 26.3 PG (27.0-31.0) Mean Corpuscular Hemoglobin Concent 30.3 G/DL (32.0-36.0) Red Cell Distribution Width 13.7 % (11.6-14.8) Platelet Count 494 K/UL (150-450) Mean Platelet Volume 5.1 FL (6.5-10.1) Neutrophils (%) (Auto) 66.3 % (45.0-75.0) Lymphocytes (%) (Auto) 24.5 % (20.0-45.0) Monocytes (%) (Auto) 6.2 % (1.0-10.0) Eosinophils (%) (Auto) 2.0 % (0.0-3.0) Basophils (%) (Auto) 1.0 % (0.0-2.0) Sodium Level 138 MMOL/L (136-145) Potassium Level 3.1 MMOL/L (3.5-5.1) Chloride Level 103 MMOL/L (98-107) Carbon Dioxide Level 27 MMOL/L (21-32) Anion Gap 8 mmol/L (5-15) Blood Urea Nitrogen 6 mg/dL (7-18) Creatinine 1.0 MG/DL (0.55-1.30) Estimat Glomerular Filtration Rate > 60 mL/min (>60) Glucose Level 137 MG/DL (74-106) Calcium Level 8.7 MG/DL (8.5-10.1) Total Bilirubin 0.3 MG/DL (0.2-1.0) Aspartate Amino Transf (AST/SGOT) 11 U/L (15-37) Alanine Aminotransferase (ALT/SGPT) 8 U/L (12-78) Alkaline Phosphatase 118 U/L (46-116) Troponin I 0.004 ng/mL (0.000-0.056) Pro-B-Type Natriuretic Peptide 15 pg/mL (0-125) Total Protein 7.3 G/DL (6.4-8.2) Albumin 3.3 G/DL (3.4-5.0) Globulin 4.0 g/dL Albumin/Globulin Ratio 0.8 (1.0-2.7) EKG Diagnostic Results Rate: normal Rhythm: NSR ST Segments: no acute changes ASA given to the pt in ED: No Rhythm Strip Diag. Results EP Interpretation: yes Rhythm: NSR, no PVC's, no ectopy Chest X-Ray Diagnostic Results Chest X-Ray Diagnostic Results : Chest X-Ray Ordered: Yes Indication: Shortness of Breath EP Interpretation: Yes Interpretation: no consolidation, no effusion, no pneumothorax, no acute cardiopulmonary disease Impression: No acute disease Electronically Signed by: Electronically signed by Cipriano Kirkpatrick MD Last Vital Signs Date Time Temp Pulse Resp B/P (MAP) Pulse Ox O2 Delivery O2 Flow Rate FiO2 09/20/17 20:45 97.8 102 19 124/66 100 Room Air 21 Status: improved Disposition: HOME, SELF-CARE Condition: Stable Scripts Albuterol Sulfate* (ALBUTEROL SULFATE MDI*) 8.5 Gm Hfa.aer.ad 2 PUFF INH Q4H Y for cough/wheezing, #1 EA 0 Refills Prov: CIPRIANO KIRKPATRICK M.D. 09/20/17 Prednisone* (PREDNISONE*) 20 Mg Tablet 40 MG ORAL DAILY, #10 TAB Prov: CIPRIANO KIRKPATRICK M.D. 09/20/17 Referrals: NOT CHOSEN IPA/,REFERRING (PCP) Departure Forms: Return to Work Return to Work Date: Sep 22, 2017 Work Restrictions: None Patient Instructions: Acute Bronchitis, [id number] CIPRIANO KIRKPATRICK M.D. Sep 20, 2017 22:18
--- NOTE | 2017-09-21 12:54 | Diagnostic Imaging Report ---
Indication: Dyspnea Technique: XRAY Chest 1v Comparison: 09/01/2017 Findings: Heart size and mediastinal contours are within normal limits given technique. There is no focal consolidation, pneumothorax or pleural effusion. Osseous structures demonstrate no acute abnormality. Impression: No radiographic evidence of acute cardiopulmonary disease.
--- NOTE | 2017-09-21 13:19 | Cardiology Report ---
APPROVED REPORT EKG Measurement Heart [id number] Normal sinus rhythm Normal ECG
== END 2017-09-20 21:00 | disposition home or self-care (01) ==
LOC: EMR 20:46
DX: J20.9 Acute bronchitis, unspecified (principal)
CPT/HCPCS: 36415; 71045; 80053; 83880; 84484; 85025; 93005; 94640; 94664; 96361; 96374; 99284; J2930; J7040

== ENCOUNTER 2017-11-04 11:26 | Emergency (ER) | payer OTHER ==
[~2017-11-04] VITALS: Ht 170.2 cm; Wt 79.4 kg
--- NOTE | 2017-11-04 12:05 | Emergency Room Report ---
History of Present Illness General Chief Complaint: Allergic Reaction Source: Patient Present Illness HPI The patient is a 47-year-old female presenting for possible allergic reaction. She states that she was driving this morning and had itching to her arms. She denies any other complaints. She denies any known allergies. She denies using any new products including any creams, consuming any new foods, or wearing any new clothing. She denies any other symptoms besides itching including hives, shortness of breath, cough, chest pain, dizziness, blurred vision, numbness or tingling, diarrhea, fever, chills Allergies: Coded Allergies: NO KNOWN ALLERGIES (Unverified Allergy, Unknown, 08/23/15) Patient History Past Medical History: see triage record Pertinent Family History: none Reviewed Nursing Documentation: PMH: Agreed, PSxH: Agreed Nursing Documentation-PMH Past Medical History: No Stated History Review of Systems All Other Systems: negative except mentioned in HPI Physical Exam Vital Signs Date Time Temp Pulse Resp B/P (MAP) Pulse Ox O2 Delivery O2 Flow Rate FiO2 11/04/17 11:33 97.8 78 16 120/80 99 Room Air 97.9 Sp02 EP Interpretation: reviewed, normal General Appearance: no apparent distress, alert, GCS 15, non-toxic Head: normocephalic, atraumatic Eyes: bilateral eye normal inspection, bilateral eye PERRL ENT: hearing grossly normal, normal pharynx, no angioedema, normal voice, uvula midline Neck: full range of motion, supple/symm/no masses Respiratory: chest non-tender, lungs clear, normal breath sounds, no respiratory distress, no wheezing, speaking full sentences Cardiovascular #1: regular rate, rhythm, no edema Gastrointestinal: normal bowel sounds, non tender, soft, non-distended, no guarding, no rebound Musculoskeletal: back normal, gait/station normal, normal range of motion, non- tender Neurologic: alert, oriented x3, responsive, motor strength/tone normal, sensory intact, speech normal Psychiatric: judgement/insight normal, memory normal, mood/affect normal, no suicidal/homicidal ideation Skin: normal turgor, rash - macular erythema to bilat forearms volar surfaces. No urticaria. Lymphatic: no adenopathy Medical Decision Making PA Attestation Dr. Pathak is my supervising physician. Patient management was discussed with my supervising physician Diagnostic Impression: Primary Impression: Allergic reaction Qualified Codes: T78.40XA - Allergy, unspecified, initial encounter ER Course The patient is a 47-year-old female presenting for possible allergic reaction. Ddx considered include but not limited to insect bite, contact dermatitis, eczema, cellulitis, among others PE: Vitals stable. No hypoxia. No resp distress macular erythema to bilat forearms volar surfaces. No urticaria. Otherwise unremarkable Pt given Benadryl and prednisone and is feeling better She is monitored in the emergency department and symptoms have improved. No new symptoms have arisen She'll be discharged home with prescription for Benadryl and prednisone. She will followup with her primary doctor and discuss possibility of allergy testing ER precautions are given including if she experiences worsening rash and/or shortness of breath Last Vital Signs Date Time Temp Pulse Resp B/P (MAP) Pulse Ox O2 Delivery O2 Flow Rate FiO2 11/04/17 11:33 97.8 78 16 120/80 99 Room Air 97.9 Status: improved Disposition: HOME, SELF-CARE Condition: Improved Scripts Diphenhydramine Hcl* (BENADRYL*) 25 Mg Capsule 25 MG ORAL Q6H Y for Itching, #20 CAP Prov: NINI CAM P.A. 11/04/17 Prednisone* (PREDNISONE*) 20 Mg Tablet 40 MG ORAL DAILY, #8 TAB Prov: NINI CAM P.A. 11/04/17 NINI CAM P.AParveen Nov 04, 2017 12:05
[2017-11-04] MEDS ORDERED: DiphenhydrAMINE 50mg/ml Inj IM ONE (12:15)
[2017-11-04] MEDS ORDERED: BENADRYL25 MG ORAL (12:49)
[2017-11-04] MEDS ORDERED: PREDNISONE20 MG ORAL (12:49)
[2017-11-04 13:09] VITALS: BP 118/67
== END 2017-11-04 13:14 | disposition home or self-care (01) ==
LOC: EMR 11:51
DX: T78.40XA Allergy, unspecified, initial encounter (principal); X58.XXXA Exposure to other specified factors, initial encounter
CPT/HCPCS: 96372; 99284; J1200; J7512

== ENCOUNTER 2017-11-08 19:58 | Emergency (ER) | payer OTHER ==
[~2017-11-08] VITALS: Ht 162.6 cm; Wt 78.9 kg
[2017-11-08] MEDS ORDERED: ZOFRAN ODT4 MG ORAL (21:52)
[2017-11-08] MEDS ORDERED: TESSALON PERLE100 MG ORAL (21:52)
[2017-11-08 22:06] VITALS: BP 124/84
--- NOTE | 2017-11-08 23:15 | Emergency Room Report ---
History of Present Illness General Chief Complaint: Upper Respiratory Illness Source: Patient Present Illness HPI 47-year-old female presents with cough for one week. Cough is dry. Pt still eating/drinking well. no sick contacts. No recent travel. No fever chills, cp, abdominal pain, diarrhea. states spme nausea no vomiting. no abd pain. Patient states that she has been to the ER multiple times for cough and bronchitis Allergies: Coded Allergies: NO KNOWN ALLERGIES (Unverified Allergy, Unknown, 08/23/15) Patient History Past Medical History: see triage record Past Surgical History: none Pertinent Family History: none Last Menstrual Period: Oct Reviewed Nursing Documentation: PMH: Agreed, PSxH: Agreed Review of Systems All Other Systems: negative except mentioned in HPI Physical Exam Vital Signs Date Time Temp Pulse Resp B/P (MAP) Pulse Ox O2 Delivery O2 Flow Rate FiO2 11/08/17 21:15 98.9 87 16 124/84 100 Room Air 99.0 Sp02 EP Interpretation: reviewed, normal General Appearance: normal inspection, well appearing, no apparent distress, alert, GCS 15, non-toxic Head: normocephalic, atraumatic Eyes: bilateral eye normal inspection, bilateral eye PERRL, bilateral eye EOMI ENT: normal ENT inspection, normal pharynx, normal voice, moist mucus membranes Neck: normal inspection, full range of motion, supple Respiratory: normal inspection, lungs clear, normal breath sounds, no respiratory distress, no retraction, no wheezing, speaking full sentences, chest symmetrical Cardiovascular #1: normal inspection, regular rate, rhythm, no edema, normal capillary refill Cardiovascular #2: 2+ radial (R), 2+ radial (L) Gastrointestinal: normal inspection, non tender, soft, non-distended, no guarding Musculoskeletal: normal inspection, back normal, normal range of motion, non- tender Neurologic: normal inspection, alert, oriented x3, responsive, motor strength/ tone normal, sensory intact, normal gait, speech normal Psychiatric: normal inspection, judgement/insight normal, memory normal Skin: normal inspection, normal color, no rash, warm/dry, well hydrated, normal turgor Medical Decision Making Diagnostic Impression: Primary Impression: Nausea Additional Impression: Upper respiratory infection ER Course 47-year-old female with cough for 7 days Also with some mild nausea DDX: Viral URI Patient not wheezing, lung exam is normal, not consistent with pneumonia or asthma exacerbation Patient with mild nausea, however not vomiting. Eating and drinking fine Plan: None ER course: Patient remains nontoxic, not in resp distress. Disposition: Patient is to be discharged home with a prescription of Tessalon Perles and Zofran Strict precautions discussed with patient on when to return to the emergency room including hemoptysis, high fevers, chills, SOB, chest pain which may indicate severe illness. Patient is to follow up with their primary care doctor within 5 days. Patient agrees with plan. Please note that this Emergency Department Report was dictated using [employer] strategy analyst technology software, occasionally this can lead to erroneous entry secondary to interpretation by the dictation equipment Last Vital Signs Date Time Temp Pulse Resp B/P (MAP) Pulse Ox O2 Delivery O2 Flow Rate FiO2 11/08/17 22:06 98.9 84 16 124/84 100 Room Air 99.0 Disposition: HOME, SELF-CARE Condition: Improved Scripts Benzonatate* (TESSALON PERLE*) 100 Mg Capsule 100 MG ORAL THREE TIMES A DAY, #21 PERLE Prov: Vanessa Mock M.D. 11/08/17 Ondansetron Odt* (ZOFRAN ODT*) 4 Mg Tab.rapdis 4 MG ORAL Q6H Y for Nausea & Vomiting, #30 TAB 0 Refills Prov: Vanessa Mock M.D. 11/08/17 Patient Instructions: Upper Respiratory Infection, Adult Additional Instructions: PLEASE SEE YOUR PRIMARY CARE DOCTOR IN 1 WEEK YOU MAY NEED TO SEE A OFFAL ICER POULTRY Vanessa Mock M.D. Nov 08, 2017 23:15
== END 2017-11-08 22:07 | disposition home or self-care (01) ==
LOC: EMR 21:25
DX: R11.0 Nausea (principal); J06.9 Acute upper respiratory infection, unspecified
CPT/HCPCS: 99283

== ENCOUNTER 2017-11-12 16:02 | Emergency (ER) | payer OTHER ==
[~2017-11-12] VITALS: Ht 162.6 cm; Wt 78.9 kg
[~2017-11-12 16:02] MED LIST changes: +TESSALON PERLE100 MG ORAL; +ZOFRAN ODT4 MG ORAL
[2017-11-12 16:15] VITALS: BP 130/82
--- NOTE | 2017-11-12 16:36 | Emergency Room Report ---
History of Present Illness General Chief Complaint: Abdominal Pain Source: Patient Present Illness HPI 47 yo female patient presents to ER complaining of cough for a few days. Patient reports dry cough. States chest pain occurs after coughing. States previously seen in ER for similar symptoms. Patient also reports vomiting and abdominal pain during this time; denies blood in vomit. Reports vomiting occurred after coughing. Denies contacts with similar symptoms. Denies rash, vision changes. Denies diarrhea, dysuria, vaginal bleeding. Denies hx of cardiovascular disease. Allergies: Coded Allergies: NO KNOWN ALLERGIES (Unverified Allergy, Unknown, 08/23/15) Patient History Past Medical History: see triage record Now: No Reviewed Nursing Documentation: PMH: Agreed, PSxH: Agreed Nursing Documentation-PMH Past Medical History: No History, Except For Review of Systems All Other Systems: negative except mentioned in HPI Physical Exam Vital Signs Date Time Temp Pulse Resp B/P (MAP) Pulse Ox O2 Delivery O2 Flow Rate FiO2 11/12/17 16:05 98.2 92 18 130/82 98 Room Air 98.2 Sp02 EP Interpretation: reviewed, normal General Appearance: well appearing, no apparent distress, alert, GCS 15 Head: normocephalic, atraumatic Eyes: bilateral eye normal inspection, bilateral eye PERRL ENT: hearing grossly normal, normal pharynx, no angioedema, normal voice, uvula midline, moist mucus membranes Neck: full range of motion Respiratory: lungs clear, normal breath sounds, no rhonchi, no respiratory distress, no accessory muscle use, no wheezing, speaking full sentences, other - chest TTP Cardiovascular #1: regular rate, rhythm, no edema Gastrointestinal: non tender, soft, no mass, non-distended, no guarding, no rebound Genitourinary: no CVA tenderness Musculoskeletal: back normal, digits/nails normal, gait/station normal, normal range of motion, non-tender Neurologic: alert, oriented x3, responsive, motor strength/tone normal, sensory intact Psychiatric: mood/affect normal Skin: no rash Lymphatic: no adenopathy Medical Decision Making PA Attestation Dr. Mock is my supervising Physician whom patient management has been discussed with. Diagnostic Impression: Primary Impression: Microscopic hematuria Additional Impression: Upper respiratory infection ER Course Pt presents to ED c/o cough, chest and abdominal pain. DDX considered but are not limited to influenza, viral URI, pneumonia, gastritis , enteritis, costochondritis, UTI. VITAL SIGNS are WNL, patient is afebrile. PE benign, no abdominal tenderness does not require labs at this time. Chest pain is reproducible on palpation, likely musculoskeletal. Lungs clear to auscultation. Discussed findings with patient, treat pain with Tylenol. Does not require labs at this time. Will order EKG and CXR. Ordered CXR, UA, EKG, and medication. ER COURSE: CXR negative for acute disease. UA infection unlikely, negative nitrite, patient asx, occult blood in urine. Discussed results with patient, instructed to followup with primary care provider. Patient does not need abx. EKG no ST elevation, no arrhythmia Patient reports feeling better following administration of medication. Patient resting comfortably, in no acute distress, nontoxic appearing, talking on phone without difficulty. DISCHARGE: At this time pt is stable for d/c to home. Patient is resting comfortably, in no acute distress, nontoxic appearing. -Rx given for Albuterol -Rx given for Tylenol/Acetaminophen for fever/pain. Continue to take Zofran and cough medication at home as previously instructed. Patient to take medications as instructed Will provide with patient care instructions and any necessary prescriptions. Care plan and follow-up instructions provided. Patient instructed to follow-up with primary care provider in 3 - 5 days. Patient questions asked and answered. Patient reports understanding and agreement to treatment plan. ER precautions given. Patient instructed to return to ER immediately for any new or worsening of symptoms including but not limited to increasing SOB, persistent fever. Labs Test 11/12/17 16:45 Urine Color Pale yellow Urine Appearance Clear Urine pH 6 (4.5-8.0) Urine Specific [place] 1.015 (1.005-1.035) Urine Protein Negative (NEGATIVE) Urine Glucose (UA) Negative (NEGATIVE) Urine Ketones Negative (NEGATIVE) Urine Occult Blood 5+ (NEGATIVE) Urine Nitrite Negative (NEGATIVE) Urine Bilirubin Negative (NEGATIVE) Urine Urobilinogen Normal MG/DL (0.0-1.0) Urine Leukocyte Esterase 1+ (NEGATIVE) Urine RBC 2-4 /HPF (0 - 2) Urine WBC 0-2 /HPF (0 - 2) Urine Squamous Epithelial Cells Few /LPF (NONE/OCC) Urine Bacteria Few /HPF (NONE) EKG Diagnostic Results Rate: normal Rhythm: NSR ST Segments: no acute changes ASA given to the pt in ED: No PA Scribe Text Delfino Montiel PA-C Rhythm Strip Diag. Results EP Interpretation: yes Rate: 89 Rhythm: NSR, no PVC's, no ectopy LORIE Scribe Text Delfino Montiel PA-C Chest X-Ray Diagnostic Results Chest X-Ray Diagnostic Results : Chest X-Ray Ordered: Yes # of Views/Limited/Complete: 1 View Indication: Chest Pain EP Interpretation: Yes PA Xray: Interpretation reviewed, by supervising MD, and agrees with findings. Interpretation: no consolidation, no effusion, no pneumothorax, no acute cardiopulmonary disease Impression: No acute disease LORIE Scribe Text Delfino Montiel PA-C Last Vital Signs Date Time Temp Pulse Resp B/P (MAP) Pulse Ox O2 Delivery O2 Flow Rate FiO2 11/12/17 16:05 98.2 92 18 130/82 98 Room Air 98.2 Disposition: HOME, SELF-CARE Condition: Stable Scripts Albuterol Sulfate* (ALBUTEROL SULFATE MDI*) 8.5 Gm Hfa.aer.ad 2 PUFF INH Q6H, #1 INH 0 Refills Prov: Harsh Montiel 11/12/17 Acetaminophen* (TYLENOL EXTRA STRENGTH*) 500 Mg Tablet 500 MG ORAL Q8H Y for Prn Headache/Temp > 101, #30 TAB 0 Refills Prov: Harsh Montiel 11/12/17 Patient Instructions: Upper Respiratory Infection, Adult, [id number] Additional Instructions: Followup with primary care provider in 3 -5 days to discuss further treatment and referral. Discuss microscopic hematuria in urine with primary care provider. Take medications as directed. Patient questions asked and answered. ER precautions given, patient instructed to return to ER immediately for any new or worsening of symptoms. Hrash Montiel Nov 12, 2017 16:36
[2017-11-12] MEDS ORDERED: Acetaminophen 500mg (ES) tab ORAL ONE (16:45)
[2017-11-12 17:17] LABS: APPEARANCE,URINE CLEAR; BILIRUBIN, URINE NEGATIVE (NEGATIVE); COLOR,URINE PALE YELLOW; GLUCOSE, URINE (UA) NEGATIVE (NEGATIVE); KETONES,URINE NEGATIVE (NEGATIVE); LEUKOCYTE ESTERASE ,URINE 1+ (NEGATIVE); NITRITE,URINE NEGATIVE (NEGATIVE); PH,URINE 6 (4.5-8.0); PROTEIN,URINE NEGATIVE (NEGATIVE); UROBILINOGEN,URINE NORMAL MG/DL (0.0-1.0)
--- NOTE | 2017-11-12 17:36 | Diagnostic Imaging Report ---
Indication: Chest pain Technique: One view of the chest Comparison: 09/20/2017 Findings: Lungs and pleural spaces are clear. Heart size is normal . There is no significant interim change Impression: No acute process
[2017-11-12] MEDS ORDERED: TYLENOL EXTRA500 MG ORAL (18:41)
[2017-11-12] MEDS ORDERED: ALBUTEROL SULF8.5 GM INH (18:41)
[2017-11-12 19:06] VITALS: BP 128/76
--- NOTE | 2017-11-13 16:27 | Cardiology Report ---
APPROVED REPORT EKG Measurement Heart [id number] Normal sinus rhythm Normal ECG
== END 2017-11-12 19:06 | disposition home or self-care (01) ==
LOC: EMR 17:43
DX: R31.29 Other microscopic hematuria (principal); J06.9 Acute upper respiratory infection, unspecified; R10.9 Unspecified abdominal pain
CPT/HCPCS: 71045; 81001; 93005; 99284

== ENCOUNTER 2017-11-28 20:21 | Emergency (ER) | payer OTHER ==
[~2017-11-28] VITALS: Ht 162.6 cm; Wt 78.5 kg
[2017-11-28 20:30] VITALS: BP 122/74
--- NOTE | 2017-11-28 20:53 | Emergency Room Report ---
History of Present Illness General Chief Complaint: Upper Extremity Injury Source: Patient Present Illness [facility] The patient presents with right shoulder pain. A large stick fell onto it from just above head level 3 days ago. The pain is 7/10 and constant and worse when she moves her shoulder. It radiates from the shoulder down into the upper arm. There is no numbness or weakness. She denies loss of consciousness. She denies medical problems. She is left handed. She is a [employer] and needs use of both hands to work. No fevers, chills, chest pain, palpitations, nausea, vomiting, diarrhea, dysuria , abdominal pain, shortness of breath, depression, visual changes, headache. Allergies: Coded Allergies: NO KNOWN ALLERGIES (Unverified Allergy, Unknown, 08/23/15) Patient History Past Medical History: see triage record Social History: Denies: smoking Social History Narrative [employer] Last Menstrual Period: november 13 Now: No Reviewed Nursing Documentation: PMH: Agreed; PSxH: Agreed Review of Systems All Other Systems: negative except mentioned in HPI Physical Exam Vital Signs Date Time Temp Pulse Resp B/P (MAP) Pulse Ox O2 Delivery O2 Flow Rate FiO2 11/28/17 20:25 98.4 80 18 122/74 98 Room Air 98.4 Sp02 EP Interpretation: reviewed, normal General Appearance: well appearing, no apparent distress, GCS 15 Head: normocephalic, atraumatic Eyes: bilateral eye normal inspection ENT: hearing grossly normal, normal voice, moist mucus membranes Neck: full range of motion, supple, no bony tend Respiratory: chest non-tender, no respiratory distress, speaking full sentences Cardiovascular #1: regular rate, rhythm Gastrointestinal: normal inspection Musculoskeletal: digits/nails normal, gait/station normal, normal range of motion, other - tenderness R shoulder, more trapezius. Minimal TTP actual shoulder with full PROM without crepetance Neurologic: alert, motor strength/tone normal, sensory intact, normal gait, grossly normal Psychiatric: depressed affect Skin: no rash - no bruising Medical Decision Making Diagnostic Impression: Primary Impression: Contusion of right shoulder Qualified Codes: S40.011A - Contusion of right shoulder, initial encounter ER Course Patient presents with right shoulder pain after trauma 3 days ago. X-rays indicated to rule out fracture. Differential includes contusion. She'll be given Motrin and Tylenol and provided with a sling. X-rays reveal no fracture dislocation or soft tissue swelling. Sling was applied by the creative technologist. Position and neurovascular are checked by me and normal. Patient is stable for outpatient observation and treatment Other X-Ray Diagnostic Results Other X-Ray Diagnostic Results : X-Ray ordered: R shoulder # of Views/Limited Vs Complete: 3 View Indication: Pain EP Interpretation: Yes Interpretation: no dislocation, no soft tissue swelling, no fractures Impression: No acute disease Electronically Signed by: Cosme Teresa MD Last Vital Signs Date Time Temp Pulse Resp B/P (MAP) Pulse Ox O2 Delivery O2 Flow Rate FiO2 11/28/17 22:04 98.4 88 18 122/74 98 Room Air 209.1 80 Status: improved Disposition: HOME, SELF-CARE Condition: Improved Scripts Ibuprofen* (MOTRIN*) 600 Mg Tablet 600 MG ORAL Q6H PRN for For Pain, #20 TAB Prov: Cosme Teresa M.D. 11/28/17 Tramadol Hcl* (ULTRAM*) 50 Mg Tablet 50 MG ORAL Q6H PRN for For Pain, #10 TAB 0 Refills Prov: Cosme Teresa M.D. 11/28/17 Cosme Teresa M.D. Nov 28, 2017 20:53
[2017-11-28] MEDS ORDERED: Acetaminophen 500mg (ES) tab PO ONE (21:00)
[2017-11-28] MEDS ORDERED: IBUPROFEN600 MG ORAL (21:53)
[2017-11-28] MEDS ORDERED: TRAMADOL HCL50 MG ORAL (21:53)
[2017-11-28 22:04] VITALS: BP 122/74
--- NOTE | 2017-11-29 09:14 | Diagnostic Imaging Report ---
Indication: Reason For Exam: TRAUMA Technique: 3 views of the right shoulder Comparison: none Findings: No acute fractures. No dislocations. The joint spaces are preserved Impression: Negative This agrees with the preliminary interpretation provided by the emergency room physician
== END 2017-11-28 22:05 | disposition home or self-care (01) ==
LOC: EMR 21:13
DX: S40.011A Contusion of right shoulder, initial encounter (principal); W20.8XXA Other cause of strike by thrown, projected or falling object, initial encounter
CPT/HCPCS: 99284

== ENCOUNTER 2017-12-02 20:12 | Emergency (ER) | payer OTHER ==
[~2017-12-02] VITALS: Ht 162.6 cm; Wt 78.5 kg
[2017-12-02 20:31] VITALS: BP 116/69
[2017-12-02 21:01] LABS: APPEARANCE,URINE CLOUDY; BILIRUBIN, URINE NEGATIVE (NEGATIVE); COLOR,URINE PALE YELLOW; GLUCOSE, URINE (UA) NEGATIVE (NEGATIVE); KETONES,URINE NEGATIVE (NEGATIVE); LEUKOCYTE ESTERASE ,URINE 3+ (NEGATIVE); NITRITE,URINE NEGATIVE (NEGATIVE); PH,URINE 6.5 (4.5-8.0); PROTEIN,URINE 2+ (NEGATIVE); UROBILINOGEN,URINE NORMAL MG/DL (0.0-1.0)
[2017-12-02] MEDS ORDERED: metroNIDAZOLE 500mg tab ORAL ONE (21:30)
[2017-12-02] MEDS ORDERED: Cephalexin 500mg cap ORAL ONE (21:30)
--- NOTE | 2017-12-02 21:31 | Emergency Room Report ---
History of Present Illness General Chief Complaint: Female Urogenital Problems Source: Patient Present Illness HPI Patient with dysuria and vag d/c. No fevers. Has had both in past but not remember d/c cause. Foul odor. Pain mostly dysuria and rated 8/10 - when urinates. LNMP 3/5, normal. Patiient recently evaluated by me for R shoulder strain. 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 Getting better, taking pain meds as needed. No fevers, chills, NVD, rashes Allergies: Coded Allergies: NO KNOWN ALLERGIES (Unverified Allergy, Unknown, 08/23/15) Patient History Past Medical History: see triage record Social History: Denies: smoking Social History Narrative [employer] at [employer] Last Menstrual Period: 11/12/17 Now: No Reviewed Nursing Documentation: PMH: Agreed; PSxH: Agreed Nursing Documentation-PMH Past Medical History: No History, Except For Hx Cardiac Problems: No - UTERINE FIBROIDS, GOUT Review of Systems All Other Systems: negative except mentioned in HPI Physical Exam Vital Signs Date Time Temp Pulse Resp B/P (MAP) Pulse Ox O2 Delivery O2 Flow Rate FiO2 12/02/17 20:20 98.3 74 16 116/69 99 Room Air 98.2 Sp02 EP Interpretation: reviewed, normal General Appearance: well appearing, no apparent distress Head: normocephalic, atraumatic Eyes: bilateral eye normal inspection, bilateral eye PERRL ENT: hearing grossly normal, normal voice Neck: full range of motion, supple Respiratory: lungs clear, no respiratory distress, speaking full sentences Cardiovascular #1: normal peripheral pulses, regular rate, rhythm Cardiovascular #2: 2+ radial (R) Gastrointestinal: normal inspection, no guarding, no rebound, tenderness Genitourinary: no CVA tenderness, cervix normal, os closed, other - fairly copious green d/c, min ? CMT Musculoskeletal: back normal, gait/station normal, no calf tenderness Neurologic: alert, normal gait Psychiatric: mood/affect normal Skin: no rash Medical Decision Making Diagnostic Impression: Primary Impression: UTI (urinary tract infection) Qualified Codes: N30.00 - Acute cystitis without hematuria Additional Impressions: Bacterial vaginosis Trichomonal infection Resolving R shoulder strain ER Course Patient presents with dysuria and vag d/c. DDx: UTI, PID, BV, yeast, trich amongst others. Need to send UA and check wet mount. UA with pyuria. W/M with trich and clue cells. Started on medicines here -- antibiotics and pyridium Discussed need to f/u with her [employer]. Patient stable for outpatient observation and treatment. Laboratory Tests Test 12/02/17 20:25 Urine Color Pale yellow Urine Appearance Cloudy Urine pH 6.5 (4.5-8.0) Urine Specific [place] 1.015 (1.005-1.035) Urine Protein 2+ (NEGATIVE) H Urine Glucose (UA) Negative (NEGATIVE) Urine Ketones Negative (NEGATIVE) Urine Occult Blood 3+ (NEGATIVE) H Urine Nitrite Negative (NEGATIVE) Urine Bilirubin Negative (NEGATIVE) Urine Urobilinogen Normal MG/DL (0.0-1.0) Urine Leukocyte Esterase 3+ (NEGATIVE) H Urine RBC 5-10 /HPF (0 - 2) H Urine WBC Tntc /HPF (0 - 2) H Urine Squamous Epithelial Cells Moderate /LPF (NONE/OCC) H Urine Bacteria Many /HPF (NONE) H Urine HCG, Qualitative Negative (NEGATIVE) Microbiology Date/Time Source Procedure Growth Status 12/02/17 20:55 Vaginal Wet Prep - Final Complete Last Vital Signs Date Time Temp Pulse Resp B/P (MAP) Pulse Ox O2 Delivery O2 Flow Rate FiO2 12/02/17 21:45 98.2 78 17 122/71 98 Room Air 98.2 Status: improved Disposition: HOME, SELF-CARE Condition: Improved Scripts Phenazopyridine Hcl* (PYRIDIUM*) 100 Mg Tablet 100 MG ORAL THREE TIMES A DAY PRN for dysuria, #9 TAB Prov: Cosme Teresa M.D. 12/02/17 Cephalexin* (KEFLEX*) 500 Mg Capsule 500 MG ORAL Q6H, #28 CAP 0 Refills Prov: Cosme Teresa M.D. 12/02/17 Metronidazole* (FLAGYL*) 500 Mg Tablet 500 MG ORAL EVERY 8 HOURS, #20 TAB Prov: Cosme Teresa M.D. 12/02/17 Referrals: NOT CHOSEN SCARLETT/,REFERRING (PCP) Cosme Teresa M.D. Dec 02, 2017 21:31
[2017-12-02] MEDS ORDERED: FLAGYL500 MG ORAL (21:34)
[2017-12-02] MEDS ORDERED: PHENAZOPYRIDIN100 MG ORAL (21:34)
[2017-12-02] MEDS ORDERED: KEFLEX500 MG ORAL (21:34)
[2017-12-02 21:45] VITALS: BP 122/71
== END 2017-12-02 21:45 | disposition home or self-care (01) ==
LOC: EMR 20:48
DX: N39.0 Urinary tract infection, site not specified (principal); N76.0 Acute vaginitis; B96.89 Other specified bacterial agents as the cause of diseases classified elsewhere; A59.9 Trichomoniasis, unspecified
CPT/HCPCS: 81003; 81025; 87070; 87086; 87210; 99284

== ENCOUNTER 2018-02-27 20:16 | Emergency (ER) | payer OTHER ==
[~2018-02-27] VITALS: Ht 162.6 cm; Wt 78.0 kg
[~2018-02-27 20:16] MED LIST changes: +FLAGYL500 MG ORAL; +PHENAZOPYRIDIN100 MG ORAL
--- NOTE | 2018-02-27 20:57 | Emergency Room Report ---
History of Present Illness General Chief Complaint: Abdominal Pain Source: Patient (Cosme Teresa M.D.) Present Illness HPI Patient presents for week of lower abdominal pain. She was seen at her urgent care during the week but left before any answers could be obtained. She also also seen here a couple of months ago with similar complaints although the pain wasn't as severe. The pain is now 8/10, sharp and bilateral in the lower abdomen. She states she has dysuria. There is no change in her bowels. There is no vomiting or diarrhea. She says the pain sometimes make her somewhat short of breath. She's been taking ibuprofen and it has not helped very much. Last period was recent. It was normal for her. There is no discharge. When she was here last time she had a pelvic exam. She is given medication. She's not sure what the pain was caused by. She denies any ultrasound or CT scan done at that time. She denies chest pain, productive cough. She's had bronchitis in the past. She denies asthma. Review of old records reveals that she was seen December 02 of the UTI. She was treated with antibiotics and Pyridium. (Cosme Teresa M.D.) Allergies: Coded Allergies: NO KNOWN ALLERGIES (Unverified Allergy, Unknown, 02/27/18) Patient History Past Medical History: see triage record Social History: Denies: smoking Social History Narrative name via [employer] Last Menstrual Period: 02/25/18 Now: No Reviewed Nursing Documentation: PMH: Agreed; PSxH: Agreed (Cosme Teresa M.D.) Nursing Documentation-PMH Past Medical History: No History, Except For Hx Cardiac Problems: No - UTERINE FIBROIDS, GOUT Hx Asthma: No - Bronchittis (Cosme Teresa M.D.) Review of Systems All Other Systems: negative except mentioned in HPI (Cosme Teresa M.D.) Physical Exam Vital Signs Date Time Temp Pulse Resp B/P (MAP) Pulse Ox O2 Delivery O2 Flow Rate FiO2 02/27/18 20:18 98.0 83 18 136/85 99 98.1 Sp02 EP Interpretation: reviewed, normal General Appearance: well appearing, no apparent distress, GCS 15 Head: normocephalic Eyes: bilateral eye normal inspection, bilateral eye PERRL ENT: moist mucus membranes Neck: supple Respiratory: lungs clear, normal breath sounds Cardiovascular #1: regular rate, rhythm Cardiovascular #2: 2+ radial (R) Gastrointestinal: normal inspection, normal bowel sounds, no mass, non- distended, tenderness - Reported tenderness in the suprapubic area bilaterally no guarding or rebound Musculoskeletal: back normal, gait/station normal, normal range of motion Neurologic: alert, oriented x3, grossly normal Psychiatric: mood/affect normal Skin: normal inspection, warm/dry (Cosme Teresa M.D.) Medical Decision Making Diagnostic Impression: Primary Impression: Suprapubic pain, acute Additional Impressions: Ovarian cyst Qualified Codes: N83.201 - Unspecified ovarian cyst, right side Uterine fibroid Qualified Codes: D25.9 - Leiomyoma of uterus, unspecified ER Course Patient presents with suprapubic pain for one week. She has a history of UTIs. Differential includes UTI, diverticulitis, ovarian cyst, appendicitis amongst others. Evaluation will be with labs and urinalysis. X-rays are not indicated at this time. She'll also receive IV hydration, Toradol. Labs with elevated WBC, low H/H, sl low K, sl high alk phos and glucose. Urine is clear. Pain still present though improved. Review of older imaging with U/S with fibroid and CT with cyst. Decision to perform CT again. (Concern over possible appi, diverticulitis.) CT with cyst. I called and discussed possible fibroid with radiologist who stated this was possible. Improved and stable for outpatient observation and treatment. Discussed need for further evaluation by [employer]. Laboratory Tests Test 02/27/18 21:16 White Blood Count 11.1 K/UL (4.8-10.8) H Red Blood Count 3.93 M/UL (4.20-5.40) L Hemoglobin 10.5 G/DL (12.0-16.0) L Hematocrit 32.9 % (37.0-47.0) L Mean Corpuscular Volume 84 FL (80-99) Mean Corpuscular Hemoglobin 26.8 PG (27.0-31.0) L Mean Corpuscular Hemoglobin Concent 31.9 G/DL (32.0-36.0) L Red Cell Distribution Width 13.5 % (11.6-14.8) Platelet Count 532 K/UL (150-450) H Mean Platelet Volume 5.1 FL (6.5-10.1) L Neutrophils (%) (Auto) 62.7 % (45.0-75.0) Lymphocytes (%) (Auto) 27.0 % (20.0-45.0) Monocytes (%) (Auto) 5.7 % (1.0-10.0) Eosinophils (%) (Auto) 3.7 % (0.0-3.0) H Basophils (%) (Auto) 0.9 % (0.0-2.0) Urine Color Pale yellow Urine Appearance Clear Urine pH 6 (4.5-8.0) Urine Specific [place] 1.010 (1.005-1.035) Urine Protein Negative (NEGATIVE) Urine Glucose (UA) Negative (NEGATIVE) Urine Ketones Negative (NEGATIVE) Urine Occult Blood 2+ (NEGATIVE) H Urine Nitrite Negative (NEGATIVE) Urine Bilirubin Negative (NEGATIVE) Urine Urobilinogen Normal MG/DL (0.0-1.0) Urine Leukocyte Esterase 1+ (NEGATIVE) H Urine RBC 2-4 /HPF (0 - 2) H Urine WBC 0-2 /HPF (0 - 2) Urine Squamous Epithelial Cells Moderate /LPF (NONE/OCC) H Urine Bacteria Few /HPF (NONE) Urine HCG, Qualitative Negative (NEGATIVE) Sodium Level 137 MMOL/L (136-145) Potassium Level 3.4 MMOL/L (3.5-5.1) L Chloride Level 102 MMOL/L (98-107) Carbon Dioxide Level 27 MMOL/L (21-32) Anion Gap 8 mmol/L (5-15) Blood Urea Nitrogen 10 mg/dL (7-18) Creatinine 1.1 MG/DL (0.55-1.30) Estimate Glomerular Filtration Rate > 60 mL/min (>60) Glucose Level 125 MG/DL (74-106) H Calcium Level 8.6 MG/DL (8.5-10.1) Total Bilirubin 0.1 MG/DL (0.2-1.0) L Aspartate Amino Transferase (AST) 14 U/L (15-37) L Alanine Aminotransferase (ALT) 19 U/L (12-78) Alkaline Phosphatase 157 U/L (46-116) H Total Protein 7.9 G/DL (6.4-8.2) Albumin 3.5 G/DL (3.4-5.0) Globulin 4.4 g/dL Albumin/Globulin Ratio 0.8 (1.0-2.7) L Lipase 193 U/L (73-393) (Cosme Teresa M.D.) ER Course I attempted to contact the patient regarding a radiology discrepancy. Patient was noted to have multiple pulmonary nodules seen by radiologist. The patient' s voice mailbox was full and unable to take messages. Patient will be sent a certified letter. The patient was noted to have a nodule which likely will require repeat imaging in 6 months if patient is a smoker. (Lorenzo Garber MD) CT/MRI/US Diagnostic Results CT/MRI/US Diagnostic Results : Imaging Test Ordered: ct abd/pelvis Impression Impression: No acute abnormality Right ovarian 3.9 cm cyst is almost certainly benign. No follow-up is necessary Incidental finding small fat-containing umbilical hernia, right lobe liver cyst (Cosme Teresa M.D.) Last Vital Signs Date Time Temp Pulse Resp B/P (MAP) Pulse Ox O2 Delivery O2 Flow Rate FiO2 02/28/18 02:46 98.2 85 19 138/80 100 98.2 Status: improved (Cosme Teresa M.D.) Disposition: HOME, SELF-CARE Condition: Improved Scripts Tramadol Hcl* (ULTRAM*) 50 Mg Tablet 50 MG ORAL Q6H PRN for For Pain, #10 TAB 0 Refills Prov: oCsme Teresa M.D. 02/28/18 Ibuprofen* (MOTRIN*) 600 Mg Tablet 600 MG ORAL Q6H PRN for For Pain, #20 TAB Prov: Cosme Teresa M.D. 02/28/18 Cosme Teresa M.D. Feb 27, 2018 20:57 Lorenzo Garber MD Feb 28, 2018 08:28
[2018-02-27] MEDS ORDERED: Ketorolac 30mg Inj IV ONE (21:00)
[2018-02-27 21:29] LABS: BASOPHILS % (AUTO) 0.9 % (0.0-2.0); EOSINOPHILS % (AUTO) 3.7 % (0.0-3.0); HEMATOCRIT 32.9 % (37.0-47.0); HEMOGLOBIN 10.5 G/DL (12.0-16.0); MEAN CORPUSCULAR VOLUME 84 FL (80-99); MONOCYTES % (AUTO) 5.7 % (1.0-10.0); NEUTROPHILS % (AUTO) 62.7 % (45.0-75.0); PLATELET COUNT 532 K/UL (150-450); RED BLOOD COUNT 3.93 M/UL (4.20-5.40); RED CELL DISTRIBUTION WIDTH 13.5 % (11.6-14.8); WHITE BLOOD COUNT 11.1 K/UL (4.8-10.8)
[2018-02-27 21:30] LABS: APPEARANCE,URINE CLEAR; BILIRUBIN, URINE NEGATIVE (NEGATIVE); COLOR,URINE PALE YELLOW; GLUCOSE, URINE (UA) NEGATIVE (NEGATIVE); KETONES,URINE NEGATIVE (NEGATIVE); LEUKOCYTE ESTERASE ,URINE 1+ (NEGATIVE); NITRITE,URINE NEGATIVE (NEGATIVE); PH,URINE 6 (4.5-8.0); PROTEIN,URINE NEGATIVE (NEGATIVE); UROBILINOGEN,URINE NORMAL MG/DL (0.0-1.0)
[2018-02-27 21:40] LABS: ANION GAP 8 mmol/L (5-15); BLOOD UREA NITROGEN 10 mg/dL (7-18); CALCIUM 8.6 MG/DL (8.5-10.1); CARBON DIOXIDE 27 MMOL/L (21-32); CHLORIDE 102 MMOL/L (98-107); CREATININE 1.1 MG/DL (0.55-1.30); POTASSIUM 3.4 MMOL/L (3.5-5.1); SODIUM 137 MMOL/L (136-145)
[2018-02-27 21:45] LABS: ALANINE AMINOTRANSFERASE 19 U/L (12-78); ALBUMIN 3.5 G/DL (3.4-5.0); ALBUMIN/GLOBULIN RATIO 0.8 (1.0-2.7); ALKALINE PHOSPHATASE 157 U/L (46-116); ASPARTATE AMINO TRANSFERASE 14 U/L (15-37); BILIRUBIN,TOTAL 0.1 MG/DL (0.2-1.0)
[2018-02-27] MEDS ORDERED: Gastrograffin 30ml ORAL PRN (23:00)
[2018-02-27] MEDS ORDERED: Isovue-300 100ml vial INJ PRN (23:00)
[2018-02-28 00:08] VITALS: BP 139/78
[2018-02-28 02:38] VITALS: BP 138/80
[2018-02-28] MEDS ORDERED: TRAMADOL HCL50 MG ORAL (02:38)
[2018-02-28] MEDS ORDERED: IBUPROFEN600 MG ORAL (02:38)
[2018-02-28 02:46] VITALS: BP 138/80
--- NOTE | 2018-02-28 08:29 | Diagnostic Imaging Report ---
Clinical Indication: Abdominal pain for one week Technique: No oral contrast utilized, per emergency room physician request IV administration nonionic contrast. Venous phase spiral acquisition obtained through the abdomen and pelvis. Multiplanar reconstructions were generated. Total dose length product 840.44 mGycm. CTDIvol(s) 15.47 mGy. Dose reduction achieved using automated exposure control Comparison: 05/05/2014 Findings: The appendix is normal. No evidence of diverticulosis or diverticulitis. Contrast is seen throughout the entirety of the small bowel, and through the colon as far as the distal descending colon. There is a small fat-containing umbilical hernia. No small bowel distention or small bowel wall thickening. Distal esophagus, stomach, duodenum are unremarkable. The gallbladder is nondistended. The liver demonstrates a cyst in segment 7, unchanged. The pancreas, spleen, adrenals, kidneys are unremarkable. No retroperitoneal or mesenteric mass or adenopathy. There is a 3.9 cm cyst in the right ovary. 17 mm follicle is seen in the left ovary. No pelvic mass or adenopathy otherwise At least 3 noncalcified nodules measuring under 5 mm are seen in the right middle lobe, may been excluded from the previous imaging volume. Some scarring or atelectasis is seen at the left lung base. The bones are unremarkable. Impression: No acute abnormality Right ovarian 3.9 cm cyst is almost certainly benign. No follow-up is necessary Incidental finding small fat-containing umbilical hernia, right lobe liver cyst The above findings are in agreement with the [facility] preliminary report At least 3 small nodules in the right middle lobe of the lung. No further follow-up necessary if there is no significant smoking history. If there is significant smoking history or other risk factors for lung carcinoma, short interval follow-up CT in 6-12 months is recommended. This finding was not reported on the preliminary report but was phoned to Dr. Garber in the emergency room at the time of interpretation. The CT scanner at [facility] is accredited by the [employer] and the scans are performed using protocols designed to limit radiation exposure to as low as reasonably achievable to attain images of sufficient resolution adequate for diagnostic evaluation.
== END 2018-02-28 02:46 | disposition home or self-care (01) ==
LOC: EMR 21:04
DX: R10.30 Lower abdominal pain, unspecified (principal); N83.201 Unspecified ovarian cyst, right side
CPT/HCPCS: 36415; 74177; 80053; 81003; 81025; 83690; 85025; 96360; 96361; 96374; 99284; J1885; Q9967

== ENCOUNTER → 2018-03-09 | Emergency (ER) | payer OTHER ==
[~2018-03-09] VITALS: Ht 162.6 cm; Wt 82.6 kg
[~2018-03-09] MED LIST changes: +Acetaminophen 500mg (ES) tab ORAL ONE; +METRONIDAZOLE500 MG ORAL
--- NOTE | 2018-03-09 19:47 | Emergency Room Report ---
History of Present Illness General Chief Complaint: Female Urogenital Problems Source: Medical Record Present Illness HPI 47-year-old female patient presents ER complaining of burning pain with urination. Also complains of yellow discharge. Denies pruritus. Reports foul- smelling odor. Denies blood in urine. Denies bloody discharge. Reports last menstrual period normal for her. Reports no recent sexual activity. Reports one sexual partner. Denies abdominal pain. Reports pelvic discomfort during this time. Denies chest pain, shortness of breath. Reports recently seen here at this ER for similar symptoms, states was discharged with fibroids at that time. Reports pain is continued since that time. Denies back or flank pain. Denies fever, chest pain, shortness breath, vomiting. denies diarrhea. reports has not followed up with physician since previous ER visit. Allergies: Coded Allergies: NO KNOWN ALLERGIES (Unverified Allergy, Unknown, 02/27/18) Patient History Past Medical History: see triage record Last Menstrual Period: 2 weeks ago Now: No Reviewed Nursing Documentation: PMH: Agreed; PSxH: Agreed Nursing Documentation-PMH Past Medical History: No History, Except For Hx Cardiac Problems: No - UTERINE FIBROIDS, GOUT Hx Asthma: No - Bronchittis Review of Systems All Other Systems: negative except mentioned in HPI Physical Exam Vital Signs Date Time Temp Pulse Resp B/P (MAP) Pulse Ox O2 Delivery O2 Flow Rate FiO2 03/09/18 19:28 98.2 74 16 128/76 100 Room Air 98.2 Sp02 EP Interpretation: reviewed General Appearance: well appearing, no apparent distress, alert, GCS 15, non- toxic Head: normocephalic, atraumatic Eyes: bilateral eye normal inspection, bilateral eye PERRL ENT: hearing grossly normal, normal pharynx, no angioedema, normal voice, uvula midline, moist mucus membranes Neck: full range of motion Respiratory: lungs clear, normal breath sounds, no rhonchi, no respiratory distress, no accessory muscle use, no wheezing, speaking full sentences Cardiovascular #1: regular rate, rhythm, no edema Genitourinary: no CVA tenderness, cervix normal, ext genitalia/vag normal, no vertebral tenderness, os closed, other - white-yellow discharge in the vaginal vault Musculoskeletal: back normal, digits/nails normal, gait/station normal, normal range of motion, non-tender Neurologic: alert, oriented x3, responsive, motor strength/tone normal, sensory intact Psychiatric: mood/affect normal Skin: no rash Medical Decision Making PA Attestation Dr. Garber is my supervising Physician whom patient management has been discussed with. Diagnostic Impression: Primary Impression: UTI (urinary tract infection) Additional Impressions: Bacterial vaginosis Trichomoniasis of vagina ER Course Pt presents to ED c/o urinary symptoms. DDX considered but are not limited to cystitis, pyelonephritis, STI, vaginitis, . VITAL SIGNS are WNL, patient is afebrile. Ordered UA and wet mount. ER COURSE UA results show positive leukocyte esterase, positive WBCs, patient symptomatic , indicate likely UTI, will treat with abx. Urine negative. Results discussed with patient. If concern for STI, followup with STI clinic for testing and treatment. Denies STI concern. Avoid sexually activity for 2 weeks. Wear condoms during sex. Pelvic exam performed with female nurse present. Sample taken for wet mount. No cervical motion tenderness. low suspicion for PID. wet mount shows no yeast, trichomoniasis and clue cells, indicate bacterial vaginosis. Will provide metronidazole for treatment. do not drink alcohol taking Flagyl. Avoid sex for 2 weeks. Wear condoms during sex. Inform sexual partners that they require evaluation and treatment. Patient is resting comfortably in chair, nontoxic appearing, in no acute distress. Patient states they feel better and is ready to go home. DISCHARGE -Rx provided for Keflex -Rx provided for Flagyl Patient is stable for discharge. Patient resting comfortably, in no acute distress, nontoxic appearing, talking without difficulty. Will provide with patient care instructions and any necessary prescriptions. Patient understands and agrees to treatment plan. Patient encouraged to drink plenty of fluids. Patient to take medication as instructed. Care plan and follow-up instructions provided. Patient questions asked and answered. Reports understanding and agreement to treatment plan. Patient instructed to follow-up with primary care provider in 3 - 5 days. ER precautions given. Patient instructed to return to ER immediately for any new or worsening of symptoms. Including but not limited to fever, abdominal pain , intractable vomiting. - Please note that this Emergency Department Report was dictated using [employer]research kennel supervisor technology software, occasionally this can lead to erroneous entry secondary to interpretation by the dictation equipment. Labs Test 03/09/18 19:40 Urine Color Pale yellow Urine Appearance Clear Urine pH 8 (4.5-8.0) Urine Specific [place] 1.010 (1.005-1.035) Urine Protein Negative (NEGATIVE) Urine Glucose (UA) Negative (NEGATIVE) Urine Ketones Negative (NEGATIVE) Urine Occult Blood 1+ (NEGATIVE) Urine Nitrite Negative (NEGATIVE) Urine Bilirubin Negative (NEGATIVE) Urine Urobilinogen Normal MG/DL (0.0-1.0) Urine Leukocyte Esterase 3+ (NEGATIVE) Urine RBC 2-4 /HPF (0 - 2) Urine WBC 5-10 /HPF (0 - 2) Urine Squamous Epithelial Cells Few /LPF (NONE/OCC) Urine Bacteria Few /HPF (NONE) Urine HCG, Qualitative Negative (NEGATIVE) Last Vital Signs Date Time Temp Pulse Resp B/P (MAP) Pulse Ox O2 Delivery O2 Flow Rate FiO2 03/09/18 19:28 98.2 74 16 128/76 100 Room Air 98.2 Disposition: HOME, SELF-CARE Condition: Stable Scripts Metronidazole* (FLAGYL*) 500 Mg Tablet 500 MG ORAL BID, #14 TAB 0 Refills Prov: Harsh Montiel 03/09/18 Cephalexin* (KEFLEX*) 500 Mg Capsule 500 MG ORAL EVERY 12 HOURS, #14 CAP 0 Refills Prov: Harsh Montiel 03/09/18 Patient Instructions: Bacterial Vaginosis, Olny-bc-Vldh, Trichomoniasis, Urinary Tract Infection Additional Instructions: Followup with primary care provider and followup with and/or OBGYN. Drink plenty of fluids. Take medications as directed. Take full course of abx. Do not drink alcohol while taking Flagyl. Sexual partners need evaluation and treatment. Wear condoms during sex. No sex for 2 weeks. Patient questions asked and answered. ER precautions given, patient instructed to return to ER immediately for any new or worsening of symptoms. Harsh Montiel Mar 09, 2018 19:47
[2018-03-09 19:50] VITALS: BP 128/76
[2018-03-09 19:55] LABS: APPEARANCE,URINE CLEAR; BILIRUBIN, URINE NEGATIVE (NEGATIVE); COLOR,URINE PALE YELLOW; GLUCOSE, URINE (UA) NEGATIVE (NEGATIVE); KETONES,URINE NEGATIVE (NEGATIVE); LEUKOCYTE ESTERASE ,URINE 3+ (NEGATIVE); NITRITE,URINE NEGATIVE (NEGATIVE); PH,URINE 8 (4.5-8.0); PROTEIN,URINE NEGATIVE (NEGATIVE); UROBILINOGEN,URINE NORMAL MG/DL (0.0-1.0)
[2018-03-09 22:05] VITALS: BP 128/76
== END | disposition home or self-care (01) ==
LOC: EMR 19:55
DX: N39.0 Urinary tract infection, site not specified (principal); N76.0 Acute vaginitis; A59.01 Trichomonal vulvovaginitis
CPT/HCPCS: 81003; 81025; 87210; 99284

== ENCOUNTER 2018-03-29 08:05 | Emergency (ER) | payer OTHER ==
[~2018-03-29] VITALS: Ht 162.6 cm; Wt 82.1 kg
[~2018-03-29 08:05] MED LIST changes: -Acetaminophen 500mg (ES) tab ORAL ONE
[2018-03-29 08:51] VITALS: BP 149/93
--- NOTE | 2018-03-29 09:55 | Emergency Room Report ---
History of Present Illness General Chief Complaint: Vaginal Source: Patient Present Illness HPI This patient was treated for a urinary tract infection and Trichomonas 2 weeks ago. She states that she did finish treatment. She states that she has not had any further sexual contact since that time. She states that intermittently she got better. However, she states that she now has itching and a burning sensation on her vulva. She states that the burning is worse with urination. She denies fever or chills. She denies abdominal pain. She denies hematuria. She states that her discharge is white. She has no other complaints. Allergies: Coded Allergies: NO KNOWN ALLERGIES (Unverified Allergy, Unknown, 02/27/18) Patient History Past Medical History: none Social History: Denies: smoking, alcohol use, drug use Last Menstrual Period: 03/21/18 Now: No Reviewed Nursing Documentation: PMH: Agreed; PSxH: Agreed Nursing Documentation-PMH Past Medical History: No History, Except For Hx Cardiac Problems: No - UTERINE FIBROIDS, GOUT Hx Asthma: No - Bronchittis Review of Systems All Other Systems: negative except mentioned in HPI Physical Exam Vital Signs Date Time Temp Pulse Resp B/P (MAP) Pulse Ox O2 Delivery O2 Flow Rate FiO2 03/29/18 08:28 98.1 82 16 149/93 99 Room Air 98.1 Sp02 EP Interpretation: reviewed, normal General Appearance: no apparent distress, alert, GCS 15, non-toxic Head: normocephalic, atraumatic Eyes: bilateral eye normal inspection ENT: hearing grossly normal, normal pharynx, no angioedema, normal voice Neck: normal inspection Respiratory: no respiratory distress, no retraction, no accessory muscle use, speaking full sentences Rectal: deferred Musculoskeletal: gait/station normal Neurologic: alert, oriented x3, responsive, motor strength/tone normal, sensory intact, speech normal Psychiatric: judgement/insight normal, memory normal, mood/affect normal, no suicidal/homicidal ideation Skin: normal color, no rash, warm/dry, well hydrated Medical Decision Making Diagnostic Impression: Primary Impression: Vaginitis ER Course This patient presents with vaginitis. Likely she has candidal vaginitis given that she is on antibiotics and Flagyl. The patient states she took the full course of her treatment for urinary tract infection and Trichomonas. Patient has no pelvic pain that would make me concerned for PID. Patient is otherwise well-appearing and nontoxic. She is afebrile. I will go ahead and treat the patient for Ann vaginitis. The patient is also instructed to follow-up with her primary care physician and a physician office specialist. Last Vital Signs Date Time Temp Pulse Resp B/P (MAP) Pulse Ox O2 Delivery O2 Flow Rate FiO2 03/29/18 08:51 98.1 80 16 149/93 99 Room Air 98.1 Status: improved Disposition: HOME, SELF-CARE Condition: Improved Darlin Hoffman DO Mar 29, 2018 09:55
[2018-03-29] MEDS ORDERED: DIFLUCAN200 MG ORAL (10:05)
[2018-03-29] MEDS ORDERED: DIBUCAINE28 GM VAGIN (10:05)
[2018-03-29 10:12] LABS: APPEARANCE,URINE SLIGHTLY CLOUDY; BILIRUBIN, URINE NEGATIVE (NEGATIVE); COLOR,URINE PALE YELLOW; GLUCOSE, URINE (UA) NEGATIVE (NEGATIVE); KETONES,URINE NEGATIVE (NEGATIVE); LEUKOCYTE ESTERASE ,URINE NEGATIVE (NEGATIVE); NITRITE,URINE NEGATIVE (NEGATIVE); PH,URINE 5 (4.5-8.0); PROTEIN,URINE NEGATIVE (NEGATIVE); UROBILINOGEN,URINE NORMAL MG/DL (0.0-1.0)
[2018-03-29 10:45] VITALS: BP 140/85
== END 2018-03-29 10:45 | disposition home or self-care (01) ==
LOC: EMR 09:47
DX: B37.3 Candidiasis of vulva and vagina (principal)
CPT/HCPCS: 81003; 81025; 99282

== ENCOUNTER 2018-05-23 18:39 | Emergency (ER) | payer SELFPAY ==
[~2018-05-23] VITALS: Ht 162.6 cm; Wt 82.6 kg
[~2018-05-23 18:39] MED LIST changes: +DIBUCAINE28 GM VAGIN; +DIFLUCAN200 MG ORAL; +ROBAXIN500 MG PO
[2018-05-23] MEDS ORDERED: Ketorolac 30mg Inj IM ONE (19:30)
[2018-05-23 19:54] VITALS: BP 116/73
[2018-05-23] MEDS ORDERED: IBUPROFEN600 MG ORAL (20:05)
[2018-05-23 20:28] VITALS: BP 120/70
--- NOTE | 2018-05-23 23:28 | Emergency Room Report ---
History of Present Illness General Chief Complaint: Pain Source: Patient Present Illness HPI 47-year-old female presents ED complaining of bilateral feet pain. States that pain has been there for the last several weeks. Denies any recent fall or injury. Notes burning pain to the bottom of both feet. 8 out of 10. Nonradiating. Worse with walking. Denies any weakness. States that she is on her feet all day because of her job. Denies any leg swelling. No other aggravating relieving factors. Denies any other associated symptoms Allergies: Coded Allergies: NO KNOWN ALLERGIES (Unverified Allergy, Unknown, 02/27/18) Patient History Past Medical History: none Past Surgical History: none Pertinent Family History: none Social History: Denies: smoking, alcohol use, drug use Now: No Immunizations: UTD Reviewed Nursing Documentation: PMH: Agreed; PSxH: Agreed Nursing Documentation-PMH Hx Cardiac Problems: No - UTERINE FIBROIDS, GOUT Hx Asthma: No - Bronchittis Review of Systems All Other Systems: negative except mentioned in HPI Physical Exam Vital Signs Date Time Temp Pulse Resp B/P (MAP) Pulse Ox O2 Delivery O2 Flow Rate FiO2 05/23/18 18:52 98.2 79 20 149/83 99 Room Air 98.2 Sp02 EP Interpretation: reviewed, normal General Appearance: no apparent distress, alert, GCS 15, non-toxic Head: normocephalic Eyes: bilateral eye normal inspection, bilateral eye PERRL ENT: normal ENT inspection Neck: normal inspection Respiratory: normal inspection Cardiovascular #1: normal inspection Gastrointestinal: normal inspection Rectal: deferred Genitourinary: no CVA tenderness Musculoskeletal: tender - sole of bilateral feet Neurologic: alert, oriented x3, responsive, motor strength/tone normal, sensory intact, speech normal Psychiatric: normal inspection Skin: normal inspection Lymphatic: normal inspection Medical Decision Making Diagnostic Impression: Primary Impression: Foot pain, bilateral Additional Impression: Pain ER Course Hospital Course 47-year-old F presents to ED complaining of bilateral burning pain to both feet Differential diagnoses include: Fracture, dislocation, sprain, contusion Clinical course Patient placed on stretcher. After initial history and physical, I ordered pain medications and Xrays Accu-Chek within normal limits Xrays prelim read shows no acute fracture/dislocation. Clinically presentation consistent with plantar fasciitis given that patient is on her feet all day. Pain is solely to the bottom of foot. Discussed findings with the patient. No evidence of neuropathy. No sensory deficits. We will provide orthopedic referral. Recommend NSAIDs, ice, modified activity. Diagnosis - bilateral foot pain Stable and discharged to home with prescription for Motrin. apply ice, keep elevated. weight bear as tolerated. Followup with ortho. Return to ED if symptoms recur or worsen Other X-Ray Diagnostic Results Other X-Ray Diagnostic Results #1: X-Ray ordered: L ankle # of Views/Limited Vs Complete: 3 View Indication: Pain EP Interpretation: Yes Interpretation: no dislocation, no soft tissue swelling, no fractures Impression: No acute disease Electronically Signed by: Electronically signed by Cipriano Kirkpatrick MD Other X-Ray Diagnostic Results #2: X-Ray ordered: R ankle # of Views/Limited Vs Complete: 3 View Indication: Pain EP Interpretation: Yes Interpretation: no dislocation, no soft tissue swelling, no fractures Impression: No acute disease Electronically Signed by: Electronically signed by Cipriano Kirkpatrick MD Other X-Ray Diagnostic Results #3: X-Ray ordered: L foot # of Views/Limited Vs Complete: 3 View Indication: Pain EP Interpretation: Yes Interpretation: no dislocation, no soft tissue swelling, no fractures Impression: No acute disease Electronically Signed by: Electronically signed by Cipriano Kirkpatrick MD Other X-Ray Diagnostic Results #4: X-Ray ordered: R foot # of Views/Limited Vs Complete: 3 View Indication: Pain EP Interpretation: Yes Interpretation: no dislocation, no soft tissue swelling, no fractures Impression: No acute disease Electronically Signed by: Electronically signed by Cipriano Kirkpatrick MD Last Vital Signs Date Time Temp Pulse Resp B/P (MAP) Pulse Ox O2 Delivery O2 Flow Rate FiO2 05/23/18 20:28 97.5 80 18 120/70 100 Room Air Status: improved Disposition: HOME, SELF-CARE Condition: Stable Scripts Ibuprofen* (MOTRIN*) 600 Mg Tablet 600 MG ORAL Q8H PRN for For Pain, #30 TAB 0 Refills Prov: Cipriano Kirkpatrick MD 05/23/18 Departure Forms: Return to Work Return to Work Date: May 25, 2018 Work Restrictions: No Prolonged Standing Patient Instructions: Plantar Fasciitis With [facility] Cipriano Kirkpatrick MD May 23, 2018 23:28
--- NOTE | 2018-05-24 08:32 | Diagnostic Imaging Report ---
Indication: Left foot pain Technique: 3 views left foot Comparison: none Findings: No acute fractures. No dislocations. The joint spaces are preserved. There is mild hammertoe deformity of the third through fifth digit Impression: No acute bony trauma
--- NOTE | 2018-05-24 08:34 | Diagnostic Imaging Report ---
Indication: Ankle pain Technique: 3 views of the left ankle Comparison: 04/18/2017 Findings: No acute fractures. No dislocations. The joint spaces are preserved. Compared to the prior exam, there is decreased soft tissue swelling Impression: No acute process
--- NOTE | 2018-05-24 08:41 | Diagnostic Imaging Report ---
Indication: Foot pain Technique: 3 views right foot Comparison: 06/25/2016 Findings: No acute fractures. No dislocations. No significant interim change Impression: Negative
--- NOTE | 2018-05-24 08:42 | Diagnostic Imaging Report ---
Indication: Ankle pain Technique: 3 views of the right ankle Comparison: none Findings: There is suggestion of interim weight loss. No acute fractures. No dislocations. Joint spaces are preserved. No significant interim change Impression: Negative
== END 2018-05-23 20:31 | disposition home or self-care (01) ==
LOC: EMR 19:29
DX: M79.672 Pain in left foot (principal); M79.671 Pain in right foot
CPT/HCPCS: 73610; 73630; 82962; 96372; 99283; J1885

== ENCOUNTER 2018-08-20 10:00 | Emergency (ER) | payer SELFPAY ==
[~2018-08-20] VITALS: Ht 162.6 cm; Wt 83.9 kg
[2018-08-20 10:24] VITALS: BP 126/72
[2018-08-20] MEDS ORDERED: Ipratropium 0.02% Inh Soln 2.5ml UD HHN ONE (10:30)
[2018-08-20] MEDS ORDERED: Albuterol ud Inhalation HHN ONE (10:30)
[2018-08-20] MEDS ORDERED: ALBUTEROL SULF8.5 GM INH (11:09)
[2018-08-20] MEDS ORDERED: PROMETHAZINE-C118 M1 ORAL (11:09)
[2018-08-20] MEDS ORDERED: PREDNISONE20 MG ORAL (11:09)
[2018-08-20 11:15] VITALS: BP 123/72
--- NOTE | 2018-08-20 14:15 | Emergency Room Report ---
History of Present Illness General Chief Complaint: Asthma Source: Patient Present Illness HPI 48-year-old female presents ED for evaluation. Patient complaining of shortness of breath and chest tightness since this morning. Notes cough which is dry. Denies history of asthma. Denies smoking. States that she has had bronchitis in the past and has been given an inhaler but states it is not helping at this time. Denies fevers or chills. Denies chest pain. Denies sick contacts or recent travel. No other aggravating relieving factors. Denies any other associated symptoms Allergies: Coded Allergies: NO KNOWN ALLERGIES (Unverified Allergy, Unknown, 02/27/18) Patient History Past Medical History: asthma Past Surgical History: none Pertinent Family History: none Social History: Denies: smoking, alcohol use, drug use Last Menstrual Period: 07/30/2018 Now: No Immunizations: UTD Reviewed Nursing Documentation: PMH: Agreed; PSxH: Agreed Nursing Documentation-PMH Past Medical History: No History, Except For Hx Cardiac Problems: No - UTERINE FIBROIDS, GOUT Hx Asthma: Yes Review of Systems All Other Systems: negative except mentioned in HPI Physical Exam Vital Signs Date Time Temp Pulse Resp B/P (MAP) Pulse Ox O2 Delivery O2 Flow Rate FiO2 08/20/18 10:06 98.4 86 14 126/84 100 Room Air 08/20/18 10:24 100 Sp02 EP Interpretation: reviewed, normal General Appearance: no apparent distress, alert, GCS 15, non-toxic Head: normocephalic, atraumatic Eyes: bilateral eye normal inspection, bilateral eye PERRL ENT: hearing grossly normal, normal pharynx, no angioedema, normal voice Neck: full range of motion, supple/symm/no masses Respiratory: chest non-tender, decreased breath sounds, speaking full sentences , wheezing Cardiovascular #1: regular rate, rhythm, no edema Cardiovascular #2: 2+ carotid (R), 2+ carotid (L), 2+ radial (R), 2+ radial (L) , 2+ dorsalis pedis (R), 2+ dorsalis pedis (L) Gastrointestinal: normal bowel sounds, non tender, soft, non-distended, no guarding, no rebound Rectal: deferred Genitourinary: normal inspection, no CVA tenderness Musculoskeletal: back normal, gait/station normal, normal range of motion, non- tender Neurologic: alert, oriented x3, responsive, motor strength/tone normal, sensory intact, speech normal Psychiatric: judgement/insight normal, memory normal, mood/affect normal, no suicidal/homicidal ideation Reflexes: 3+ bicep (R), 3+ bicep (L), 3+ tricep (R), 3+ tricep (L), 3+ knee (R) , 3+ knee (L) Skin: normal color, no rash, warm/dry, well hydrated Lymphatic: no adenopathy Medical Decision Making Diagnostic Impression: Primary Impression: Bronchitis ER Course Hospital Course 48-year-old female presents to ED complaining of cough, chest tightness Differential diagnoses include: URI, bronchitis, asthma/COPD, pneumonia Clinical course Patient placed on stretcher. After initial history and physical I ordered prednisone and nebulizer treatment. Upon reassessment patient states cough and symptoms have improved. Findings consistent with bronchitis. Discussed findings with patient. We will discharge with prednisone, inhaler, cough medication. Safe for discharge with close follow-up Diagnosis - bronchitis Stable and discharged home with prescriptions for Rx prednisone, albuterol, promethazine/codeine. Instructed to followup with PMD. Return to ED if symptoms recur or worsen Last Vital Signs Date Time Temp Pulse Resp B/P (MAP) Pulse Ox O2 Delivery O2 Flow Rate FiO2 08/20/18 11:15 98.0 85 22 123/72 100 Room Air 08/20/18 10:42 21 Status: improved Disposition: HOME, SELF-CARE Condition: Stable Scripts Codeine/Promethazine Hcl* (PROMETHAZINE-CODEINE SYRUP*) 118 Ml Syrup 5 ML ORAL Q6H PRN for For Cough, #118 ML 0 Refills Prov: Cipriano Kirkpatrick MD 08/20/18 Prednisone* (PREDNISONE*) 20 Mg Tablet 40 MG ORAL DAILY for 5 Days, TAB Prov: Cipriano Kirkpatrick MD 08/20/18 Albuterol Sulfate* (ALBUTEROL SULFATE MDI*) 8.5 Gm Hfa.aer.ad 2 PUFF INH Q6H, #1 EA 0 Refills Prov: Cipriano Kirkpatrick MD 08/20/18 Departure Forms: Return to Work Return to Work Date: Aug 22, 2018 Work Restrictions: None Patient Instructions: Acute Bronchitis, [id number] Cipriano Kirkpatrick MD Aug 20, 2018 14:15
== END 2018-08-20 11:17 | disposition home or self-care (01) ==
LOC: EMR 10:20
DX: J45.909 Unspecified asthma, uncomplicated (principal)
CPT/HCPCS: 94640; 99284; J7512

== ENCOUNTER 2018-11-29 16:03 | Emergency (ER) | payer SELFPAY ==
[~2018-11-29] VITALS: Ht 162.6 cm; Wt 82.6 kg
[~2018-11-29 16:03] MED LIST changes: +PROMETHAZINE-C118 M1 ORAL; +ZITHROMAX250 MG ORAL
[2018-11-29 16:54] VITALS: BP 141/84
--- NOTE | 2018-11-29 16:56 | NUR ---
ED Nurse Note: received pt. pt walked in to ED due to lower abdominal pain for last 6 days. pt denies any n/v/d. urine sample collected. no fever or chills noted. AAO x 4. respirations even and non-labored noted. will wait for the further order.
[2018-11-29] MEDS ORDERED: Dicyclomine HCl 10mg/5ml oral soln ORAL ONE (17:15)
[2018-11-29 17:19] LABS: APPEARANCE,URINE CLEAR; BILIRUBIN, URINE NEGATIVE (NEGATIVE); COLOR,URINE PALE YELLOW; GLUCOSE, URINE (UA) NEGATIVE (NEGATIVE); KETONES,URINE NEGATIVE (NEGATIVE); LEUKOCYTE ESTERASE ,URINE 2+ (NEGATIVE); NITRITE,URINE NEGATIVE (NEGATIVE); PH,URINE 6.5 (4.5-8.0); PROTEIN,URINE NEGATIVE (NEGATIVE); UROBILINOGEN,URINE NORMAL MG/DL (0.0-1.0)
--- NOTE | 2018-11-29 18:11 | Emergency Room Report ---
History of Present Illness General Chief Complaint: Abdominal Pain Source: Patient Present Illness HPI * 48 year old female presents to the emergency department complaining of abdominal pain, and suspicion for . Eyes dysuria, hematuria, urinary frequency or urgency. Patient denies vaginal discharge she does report unprotected intercourse and states that she has not started menopause yet. [place] constipation, diarrhea or vomiting she does report some nausea intermittently. reports hx of fibroids several years ago. Allergies: Coded Allergies: NO KNOWN ALLERGIES (Unverified Allergy, Unknown, 02/27/18) Patient History Past Medical History: see triage record Past Surgical History: none Pertinent Family History: none Last Menstrual Period: 10/29/18 Reviewed Nursing Documentation: PMH: Agreed; PSxH: Agreed Nursing Documentation-PMH Past Medical History: No Stated History Hx Cardiac Problems: No - UTERINE FIBROIDS, GOUT Hx Asthma: Yes Review of Systems All Other Systems: negative except mentioned in HPI Physical Exam Vital Signs Date Time Temp Pulse Resp B/P (MAP) Pulse Ox O2 Delivery O2 Flow Rate FiO2 11/29/18 16:24 98.2 89 14 141/84 100 Room Air Medical Decision Making PA Attestation Dr. paz is my supervising Physician whom patient management has been discussed with. Diagnostic Impression: Primary Impression: UTI (urinary tract infection) Qualified Codes: N30.01 - Acute cystitis with hematuria Additional Impressions: Abdominal pain Qualified Codes: R10.30 - Lower abdominal pain, unspecified History of uterine fibroid ER Course *48 year old female presents to the emergency department complaining of abdominal pain, and suspicion for . Eyes dysuria, hematuria, urinary frequency or urgency. Patient denies vaginal discharge she does report unprotected intercourse and states that she has not started menopause yet. [place] constipation, diarrhea or vomiting she does report some nausea intermittently. reports hx of fibroids several years ago. Ddx considered but are not limited to Diverticulitis, acute appy, diarrhea,UC, PUD, GE, pancreatitis, gallstone, ovarian torsion, ectopic , PID tubo-ovarian abscess. Vital signs: are WNL, pt. is afebrile H&PE are most consistent with [ ] ORDERS: -UA: leukocytosis, RBC's. -URINE HCG:Negative ED INTERVENTIONS: -PO zofran 4mg. / Zantac, Fluids - DISCHARGE: At this time pt. is stable for d/c to home. Will provide printed patient care instructions, and any necessary prescriptions. Care plan and follow up instructions have been discussed with the patient prior to discharge. Labs Test 11/29/18 16:30 Urine Color Pale yellow Urine Appearance Clear Urine pH 6.5 (4.5-8.0) Urine Specific [place] 1.010 (1.005-1.035) Urine Protein Negative (NEGATIVE) Urine Glucose (UA) Negative (NEGATIVE) Urine Ketones Negative (NEGATIVE) Urine Blood 1+ (NEGATIVE) Urine Nitrite Negative (NEGATIVE) Urine Bilirubin Negative (NEGATIVE) Urine Urobilinogen Normal MG/DL (0.0-1.0) Urine Leukocyte Esterase 2+ (NEGATIVE) Urine RBC 5-10 /HPF (0 - 2) Urine WBC 0-2 /HPF (0 - 2) Urine Squamous Epithelial Cells Many /LPF (NONE/OCC) Urine Bacteria Few /HPF (NONE) Urine HCG, Qualitative Negative (NEGATIVE) Last Vital Signs Date Time Temp Pulse Resp B/P (MAP) Pulse Ox O2 Delivery O2 Flow Rate FiO2 11/29/18 16:54 89 14 Room Air 11/29/18 16:54 98.2 141/84 100 Disposition: HOME, SELF-CARE Condition: Stable Scripts Acetaminophen* (TYLENOL EXTRA STRENGTH*) 500 Mg Tablet 500 MG ORAL Q6H, #20 TAB 0 Refills Prov: Tiffani Barreto 11/29/18 Nitrofurantoin Monohyd/M-Cryst* (MACROBID 100 MG*) 100 Mg Capsule 100 MG ORAL EVERY 12 HOURS for 5 Days, #10 CAP Prov: Tiffani Barreto 11/29/18 Phenazopyridine Hcl* (PYRIDIUM*) 200 Mg Tablet 200 MG ORAL THREE TIMES A DAY for 3 Days, #19 TAB 0 Refills Prov: Tiffani Barreto 11/29/18 Referrals: NOT CHOSEN IPA/MD,REFERRING (PCP) Patient Instructions: Urinary Tract Infection, [id number], Uterine Fibroids, [id number] Additional Instructions: Take medications as directed. Follow up with a [facility] F[facility] within 3 days, even if your symptoms have resolved. * * for evaluation of your fibroids as an outpatient. Return sooner to ED if new symptoms occur, or current symptoms become worse. - Please note that this Emergency Department Report was dictated using [employer] professional technology software, occasionally this can lead to erroneous entry secondary to interpretation by the dictation equipment. Tiffani Barreto Nov 29, 2018 18:11
[2018-11-29] MEDS ORDERED: PHENAZOPYRIDIN200 MG ORAL (18:13)
[2018-11-29] MEDS ORDERED: TYLENOL EXTRA500 MG ORAL (18:13)
[2018-11-29] MEDS ORDERED: NITROFURANTOIN100 M2 ORAL (18:13)
[2018-11-29 18:20] VITALS: BP 132/72
--- NOTE | 2018-11-29 18:20 | NUR ---
ER DISCHARGE NOTE: Patient is cleared to be discharged per ERMD, pt is aox4, on room air, with stable vital signs. pt was given dc and prescription instructions, pt was able to verbalize understanding, pt id band removed without complications. pt is able to ambulate with steady gait. pt took all belongings.
== END 2018-11-29 18:20 | disposition home or self-care (01) ==
LOC: EMR 17:01
DX: N39.0 Urinary tract infection, site not specified (principal); D25.9 Leiomyoma of uterus, unspecified; M10.9 Gout, unspecified; J45.909 Unspecified asthma, uncomplicated
CPT/HCPCS: 81003; 81025; 99283

== ENCOUNTER 2020-04-26 17:08 | Emergency (ER) | payer SELFPAY ==
[~2020-04-26] VITALS: Ht 162.6 cm; Wt 86.2 kg
[2020-04-26 17:23] VITALS: BP 147/89
--- NOTE | 2020-04-26 17:43 | Emergency Room Report ---
History of Present Illness General Chief Complaint: Pain Source: Patient (Tiffani Barreto) Present Illness HPI 49 YO Female presents to the ED c/o 05/20 in severity pain, tenderness and swelling to the left wrist/thumb area x1 day. Patient reports she has been having some discomfort in that wrist for 1 week however today when she went to get up off the toilet and lifted herself with her hand she felt a pop and had acute onset of more severe pain. Patient denies injury to this extremity previously. She denies bruising. She denies paresthesias, neck pain or shoulder pain. She denies skin color changes or temperature changes. She has not taken any medications for her symptoms. She is left hand dominant. 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 Past Surgical History: none Pertinent Family History: none Now: No Reviewed Nursing Documentation: PMH: Agreed; PSxH: Agreed (Tiffani Barreto) Nursing Documentation-PMH Past Medical History: No History, Except For Hx Cardiac Problems: No - UTERINE FIBROIDS, GOUT Hx Asthma: Yes (Tiffani Barreto) Review of Systems All Other Systems: negative except mentioned in HPI (Tiffani Barreto) Physical Exam Vital Signs Date Time Temp Pulse Resp B/P (MAP) Pulse Ox O2 Delivery O2 Flow Rate FiO2 04/26/20 17:16 98.1 88 16 147/89 (108) 99 Room Air Sp02 EP Interpretation: reviewed, normal General Appearance: no apparent distress, alert, GCS 15, non-toxic Head: normocephalic, atraumatic Eyes: bilateral eye normal inspection, bilateral eye PERRL ENT: hearing grossly normal, normal voice Neck: full range of motion Respiratory: lungs clear, normal breath sounds, speaking full sentences Cardiovascular #1: regular rate, rhythm, no edema, normal capillary refill Cardiovascular #2: 2+ radial (R), 2+ radial (L) Musculoskeletal: gait/station normal, tender - thenar and snuff box tenderness of the left hand/wrist. Pain with ROM. No bruising, mild swelling. Neurologic: alert, motor strength/tone normal, distal neuro normal, oriented x3 , sensory intact, responsive, speech normal, grossly normal Psychiatric: judgement/insight normal Skin: no rash, normal color (Tiffani Barreto) Medical Decision Making PA Attestation Dr. Teresa Is my supervising Physician whom patient management has been discussed with. (Tiffani Barreto) Diagnostic Impression: Primary Impression: Left wrist sprain Qualified Codes: S63.502A - Unspecified sprain of left wrist, initial encounter ER Course 49 YO Female presents to the ED c/o 05/20 in severity pain, tenderness and swelling to the left wrist/thumb area x1 day. Patient reports she has been having some discomfort in that wrist for 1 week however today when she went to get up off the toilet and lifted herself with her hand she felt a pop and had acute onset of more severe pain. Patient denies injury to this extremity previously. She denies bruising. She denies paresthesias, neck pain or shoulder pain. She denies skin color changes or temperature changes. She has not taken any medications for her symptoms. She is left hand dominant. Ddx considered but are not limited to Fracture, dislocation, contusion, Sprain/ Strain/Spasm, Vital signs: are WNL, pt. is afebrile H&PE are most consistent with musculoskeletal injury will perform imaging to r/ o fractures/dislocations. ORDERS: - X-ray Left Hand 3 views - negative for fx, Dislocation, or significant soft tissue injury, per preliminary read in ED, and signed by LORIE Barreto , my supervising physician has reviewed, and agrees with my interpretation. ED INTERVENTIONS: -Left Thumb Spika Splint applied by hydroelectric plant technician. Pt. remains neurovascularly intact. DISCHARGE: At this time pt. is stable for d/c to home. Will provide printed patient care instructions, and any necessary prescriptions. Care plan and follow up instructions have been discussed with the patient prior to discharge. (Tiffani Barreto) Other X-Ray Diagnostic Results Other X-Ray Diagnostic Results : X-Ray ordered: Left Hand # of Views/Limited Vs Complete: 3 View Indication: Pain EP Interpretation: Yes LORIE Xray: Interpretation reviewed, by supervising MD, and agrees with findings. Interpretation: no dislocation, no soft tissue swelling, no fractures Impression: No acute disease Electronically Signed by: Tiffani Barreto PA-C (Tiffani Barreto) Other X-Ray Diagnostic Results : Electronically Signed by: Ousmane Cano documentation of Xray reviewed by me and is accurate, Cosme Teresa MD (Cosme Teresa MD) Last Vital Signs Date Time Temp Pulse Resp B/P (MAP) Pulse Ox O2 Delivery O2 Flow Rate FiO2 04/26/20 17:23 98.1 88 16 147/89 99 Room Air Status: improved (Tiffani Barreto) Disposition: HOME, SELF-CARE Condition: Stable Scripts Naproxen* (NAPROXEN*) 500 Mg Tablet 500 MG ORAL TWICE A DAY, #20 TAB Prov: Tiffani Barreto 04/26/20 Referrals: Orthopedic Urgent Care Departure Forms: Return to Work Return to Work Date: Apr 30, 2020 Other Restrictions: May return Sooner if Symptoms have resolved. Return to Full Activity: May 05, 2020 Work Restrictions: No Heavy Lifting Patient Instructions: Wrist Sprain Additional Instructions: Take medications as directed. Follow up with an [facility] in 3-5 days, even if your symptoms have resolved. If symptoms persist MRI may be required at the discretion of your PCP or Ortho Specialist. --Please review list of primary care clinics, if you do not already have a primary care provider who can give you an Orthopedic Referral. Return sooner to ED if new symptoms occur, or current symptoms become worse. - Please note that this Emergency Department Report was dictated using [employer] pocket machine operator technology software, occasionally this can lead to erroneous entry secondary to interpretation by the dictation equipment. Tiffani Barreto Apr 26, 2020 17:43 Cosme Teresa MD Apr 27, 2020 17:38
[2020-04-26] MEDS ORDERED: NAPROXEN500 M2 ORAL (18:19)
[2020-04-26 18:26] VITALS: BP 135/74
--- NOTE | 2020-04-27 10:57 | Diagnostic Imaging Report ---
INDICATION: Hand pain TECHNIQUE: XRAY Hand Complete L Multiple views of the left hand were obtained COMPARISON: None FINDINGS: There is no acute fracture or dislocation. Joint spaces are maintained. There is diffuse soft tissue swelling of first digit and lateral aspect of the wrist. IMPRESSION: No acute fracture or dislocation.
== END 2020-04-26 18:26 | disposition home or self-care (01) ==
LOC: EMR 17:45
DX: S63.502A Unspecified sprain of left wrist, initial encounter (principal); X58.XXXA Exposure to other specified factors, initial encounter; Y92.9 Unspecified place or not applicable
CPT/HCPCS: 29125; 99283

== ENCOUNTER 2020-07-13 13:01 | Emergency (ER) | payer OTHER ==
[~2020-07-13] VITALS: Ht 162.6 cm; Wt 85.3 kg
[~2020-07-13 13:01] MED LIST changes: +NAPROXEN500 M2 ORAL
--- NOTE | 2020-07-13 13:11 | NUR ---
ED Nurse Note: Pt ambulated to ed c/o right ankle pain s/p "twisting it last night running". Pt reports left wrist pain s/p injury in April and has not gotten better.
--- NOTE | 2020-07-13 13:13 | NUR ---
ED Nurse Note: Pt able to apply light pressure to ankle, skin appears intact. no visible deformities noted, no bruising or swelling. Wrist appears dry intact, no deformities present.
--- NOTE | 2020-07-13 13:32 | NUR ---
ED Nurse Note: xray at bedside
--- NOTE | 2020-07-13 14:07 | NUR ---
ED Nurse Note: xray at bedside
--- NOTE | 2020-07-13 14:18 | Emergency Room Report ---
History of Present Illness General Chief Complaint: Lower Extremity Injury Present Illness HPI 50-year-old female presents to the emergency department complaining of 2 complaints. First of which new onset 8 out of 10 severity pain to the lateral aspect of the right foot and ankle x2 days. Patient reports she was running yesterday when she tripped and fell and had acute onset of her pain. Patient reports mild swelling. She reports exacerbation with weightbearing and walking. She denies bruises. Patient second complaint is persistent pain in the left w rist area since April. Patient was previously evaluated and had x-rays performed which were negative and was placed in a wrist splint. Patient reports she DC'd the splint after several weeks despite still having pain in the same area. She reports did not follow-up with orthopedics or her primary care. Patient reports no new trauma or fall to the affected area however she states that her pain is not improved. Patient is right-hand dominant. Denies numbness tingling or loss of sensation or gross motor movements of the extremities, midline neck or back pain/tenderness, or incontinence of bowel or bladder. Allergies: Coded Allergies: NO KNOWN ALLERGIES (Unverified Allergy, Unknown, 02/27/18) COVID-19 Screening Contact w/high risk pt: No Experienced COVID-19 symptoms?: No COVID-19 Testing performed RAGS LABORER: No Patient History Past Medical History: see triage record Past Surgical History: none Pertinent Family History: none Last Menstrual Period: n/a Now: No Reviewed Nursing Documentation: PMH: Agreed; PSxH: Agreed Nursing Documentation-PMH Hx Cardiac Problems: No - UTERINE FIBROIDS, GOUT Hx Asthma: Yes Review of Systems All Other Systems: negative except mentioned in HPI Physical Exam Vital Signs Date Time Temp Pulse Resp B/P (MAP) Pulse Ox O2 Delivery O2 Flow Rate FiO2 07/13/20 13:06 98.8 84 18 134/85 (101) 94 Room Air Sp02 EP Interpretation: reviewed, normal General Appearance: no apparent distress, alert, GCS 15, non-toxic Head: normocephalic, atraumatic Eyes: bilateral eye normal inspection, bilateral eye PERRL ENT: hearing grossly normal, normal voice Neck: full range of motion Respiratory: lungs clear, normal breath sounds, speaking full sentences Cardiovascular #1: regular rate, rhythm, normal capillary refill Cardiovascular #2: 2+ radial (L) Musculoskeletal: normal range of motion, gait/station normal - Compensatory favoring the right leg., tender - Tenderness to palpation to the medial aspect of the left wrist. No swelling no bruising no obvious deformities. Tenderness to palpation to the right lateral aspect of the right foot and ankle some mild swelling noted. No bruising., swelling - Lateral aspect of the right ankle Neurologic: alert, motor strength/tone normal, oriented x3, sensory intact, responsive, speech normal Psychiatric: judgement/insight normal Skin: normal color - No bruising Medical Decision Making PA Attestation Dr. Kessler Is my supervising Physician whom patient management has been discussed with. Diagnostic Impression: Primary Impression: Rivera fracture Qualified Codes: S99.191A - Other physeal fracture of right metatarsal, initial encounter for closed fracture Additional Impressions: Persistent pain of wrist Right ankle sprain Qualified Codes: S93.401A - Sprain of unspecified ligament of right ankle, initial encounter ER Course 50-year-old female presents to the emergency department complaining of 2 complaints. First of which new onset 8 out of 10 severity pain to the lateral aspect of the right foot and ankle x2 days. Patient reports she was running yesterday when she tripped and fell and had acute onset of her pain. Patient reports mild swelling. She reports exacerbation with weightbearing and walking. She denies bruises. Patient second complaint is persistent pain in the left wrist area since April. Patient was previously evaluated and had x-rays performed which were negative and was placed in a wrist splint. Patient reports she DC'd the splint after several weeks despite still having pain in the same area. She reports did not follow-up with orthopedics or her primary care. Patient reports no new trauma or fall to the affected area however she states that her pain is not improved. Patient is right-hand dominant. Denies numbness tingling or loss of sensation or gross motor movements of the extremities, midline neck or back pain/tenderness, or incontinence of bowel or bladder. Ddx considered but are not limited to Fracture, dislocation, contusion, Sprain/Strain/Spasm. Vital signs: are WNL, pt. is afebrile H&PE are most consistent with musculoskeletal injury will perform imaging to r/o fractures/dislocations. ORDERS: - X-ray Right Foot and Ankle 3 views each, and left wrist - negative for fx, Dislocation, or significant soft tissue injury, per preliminary read in ED, and signed by LORIE Barreto, my supervising physician has reviewed, and agrees with my interpretation. ED INTERVENTIONS: - IBU 600 MG PO -Left wrist splint applied by RN. Pt. remains neurovascularly intact. Right short leg posterior splint applied by RN. Pt. remains neurovascularly intact. -Patient is provided with crutches and instructed on their use DISCHARGE: At this time pt. is stable for d/c to home. Will provide printed patient care instructions, and any necessary prescriptions. Care plan and follow up instructions have been discussed with the patient prior to discharge. Other X-Ray Diagnostic Results Other X-Ray Diagnostic Results #1: X-Ray ordered: Right ankle # of Views/Limited Vs Complete: 3 View Indication: Pain EP Interpretation: Yes LORIE Xray: Interpretation reviewed, by supervising MD, and agrees with findings. Interpretation: no dislocation, no soft tissue swelling Electronically Signed by: Tiffani Barreto PA-C Other X-Ray Diagnostic Results #2: X-Ray ordered: Right Foot # of Views/Limited Vs Complete: 3 View Indication: Pain EP Interpretation: Yes LORIE Xray: Interpretation reviewed, by supervising MD, and agrees with findings. Interpretation: no dislocation, no soft tissue swelling, other - RIVERA FX 5th metatarsal Impression: Other Electronically Signed by: Tiffani Barreto PA-C Other X-Ray Diagnostic Results #3: X-Ray ordered: Left Wrist # of Views/Limited Vs Complete: 3 View Indication: Pain EP Interpretation: Yes LORIE Xray: Interpretation reviewed, by supervising MD, and agrees with findings. Interpretation: no dislocation, no soft tissue swelling, no fractures Impression: No acute disease Electronically Signed by: Tiffani Barreto PA-C Last Vital Signs Date Time Temp Pulse Resp B/P (MAP) Pulse Ox O2 Delivery O2 Flow Rate FiO2 07/13/20 13:06 98.8 84 18 134/85 (101) 94 Room Air Status: improved Disposition: HOME, SELF-CARE Condition: Stable Scripts Ibuprofen* (MOTRIN*) 600 Mg Tablet 600 MG ORAL THREE TIMES A DAY, #20 TAB Prov: Tiffani Barreto 07/13/20 Hydrocodone Bit/Acetaminophen 5-325* (NORCO 5-325 TABLET*) 1 Each Tablet 1 TAB ORAL Q6H PRN for FOR PAIN, #12 TAB 0 Refills Prov: Tiffani Barreto 07/13/20 Referrals: Orthopedic Urgent Care Additional Instructions: Take medications as directed. Do not drink alcohol, drive, or operate heavy machinery while taking [place] as this may cause drowsiness. Follow up with an ADMITTING CLERK in 3-5 days, even if your symptoms have resolved. You must follow-up with orthopedist to ensure proper healing and/or to evaluate if surgery is needed. --Please review list of primary care clinics, if you do not already have a prima ry care provider who can give you an Orthopedic Referral. Return sooner to ED if new symptoms occur, or current symptoms become worse. - Please note that this Emergency Department Report was dictated using [employer] technology software, occasionally this can lead to erroneous entry secondary to interpretation by the dictation equipment. Tiffani Barreto Jul 13, 2020 14:18
[2020-07-13] MEDS ORDERED: NORCO 5-325 TA1 EAC1 ORAL (15:18)
[2020-07-13] MEDS ORDERED: IBUPROFEN600 M1 ORAL (15:18)
--- NOTE | 2020-07-13 15:42 | NUR ---
ED Nurse Note: Pt right posterior short leg splint place and pt given crutches.
[2020-07-13 15:46] VITALS: BP 127/88
--- NOTE | 2020-07-13 15:46 | NUR ---
ER DISCHARGE NOTE: Patient is cleared to be discharged per ERMD, pt is aox4, on room air, with stable vital signs. pt was given dc and prescription instructions, pt was able to verbalize understanding, pt id band removed. pt is able to ambulate with steady gait. pt took all belongings.
--- NOTE | 2020-07-14 16:01 | Diagnostic Imaging Report ---
Clinical Indication:Left wrist pain Technique: 3 views of the left wrist Comparison: None Findings: Bony alignment is normal. No acute fractures. No dislocations. The joint spaces are preserved. Impression: Negative
--- NOTE | 2020-07-14 16:02 | Diagnostic Imaging Report ---
Indication: Right ankle pain Technique: 3 views of the right ankle Comparison: none Findings: No acute fractures. No dislocations. Joint spaces are preserved. Normal mineralization. No radiopaque foreign body. Impression: Negative
--- NOTE | 2020-07-14 17:02 | Diagnostic Imaging Report ---
Indication: Right foot pain Technique: 3 views of the right foot Comparison: none Findings: No acute fractures. No dislocations. The joint spaces are preserved. Impression: Negative
== END 2020-07-13 15:47 | disposition home or self-care (01) ==
LOC: EMR 14:16
DX: S99.191A Other physeal fracture of right metatarsal, initial encounter for closed fracture (principal); S93.401A Sprain of unspecified ligament of right ankle, initial encounter; W01.0XXA Fall on same level from slipping, tripping and stumbling without subsequent striking against object, initial encounter; Y92.9 Unspecified place or not applicable
CPT/HCPCS: 29125; 29515; 99284

== ENCOUNTER 2020-07-14 11:52 | Emergency (ER) | payer OTHER ==
[~2020-07-14] VITALS: Ht 162.6 cm; Wt 81.6 kg
[~2020-07-14 11:52] MED LIST changes: +IBUPROFEN600 M1 ORAL; +NORCO 5-325 TA1 EAC1 ORAL
--- NOTE | 2020-07-14 12:39 | Emergency Room Report ---
History of Present Illness General Chief Complaint: Lower Extremity Injury Present Illness HPI 50-year-old female with recent diagnosis of Rivera fracture right foot who was here at [facility] 1 day ago here requesting of numbness underneath the splint. The splint was applied correctly. Patient has full range of one of the toes. No compartment syndrome noted. Has not yet made arrangements to follow-up with orthopedist. Denies any new fall or injury. Compliant with taking medication. Patient is neurovascularly intact. Allergies: Coded Allergies: NO KNOWN ALLERGIES (Unverified Allergy, Unknown, 02/27/18) COVID-19 Screening Contact w/high risk pt: No Experienced COVID-19 symptoms?: No COVID-19 Testing performed AUTOPSY PATHOLOGIST: No Patient History Past Medical History: see triage record Past Surgical History: none Pertinent Family History: none Last Menstrual Period: na Now: No Immunizations: UTD Reviewed Nursing Documentation: PMH: Agreed; PSxH: Agreed Nursing Documentation-PMH Hx Cardiac Problems: No - UTERINE FIBROIDS, GOUT Hx Asthma: Yes Review of Systems All Other Systems: negative except mentioned in HPI Physical Exam Vital Signs Date Time Temp Pulse Resp B/P (MAP) Pulse Ox O2 Delivery O2 Flow Rate FiO2 07/14/20 12:00 98.1 96 20 155/63 (93) 98 Room Air Sp02 EP Interpretation: reviewed, normal General Appearance: no apparent distress, alert, GCS 15, non-toxic Head: normocephalic, atraumatic Eyes: bilateral eye normal inspection, bilateral eye PERRL ENT: hearing grossly normal, normal pharynx, no angioedema, normal voice Neck: full range of motion, supple/symm/no masses Respiratory: chest non-tender, lungs clear, normal breath sounds, speaking full sentences Cardiovascular #1: regular rate, rhythm, no edema Cardiovascular #2: 2+ dorsalis pedis (R), 2+ dorsalis pedis (L) Gastrointestinal: normal bowel sounds, non tender, soft, non-distended, no guarding, no rebound Rectal: deferred Genitourinary: no CVA tenderness Musculoskeletal: back normal, no calf tenderness, other - Neurovascularly intact Neurologic: alert, motor strength/tone normal, oriented x3, sensory intact, responsive, speech normal Psychiatric: judgement/insight normal, memory normal, mood/affect normal, no suicidal/homicidal ideation Skin: no rash Lymphatic: no adenopathy Procedures Splinting Splinting : Consent: Verbal Location: Right lower leg Hand-Made Type: plaster Splint: poserior short Pre-Proc Neuro Vasc Exam: normal Post-Proc Neuro Vasc Exam: normal Patient Tolerated: Well Complications: None Medical Decision Making LORIE Attestation Diagnosis and treatment plans were reviewed and discussed with my supervising physician Dr. Mota Diagnostic Impression: Primary Impression: Aftercare for cast or splint check or change ER Course 50-year-old female with recent diagnosis of Rivera fracture right foot who was here at [facility] 1 day ago here requesting of numbness underneath the splint. The splint was applied correctly. Patient has full range of one of the toes. No compartment syndrome noted. Has not yet made arrangements to follow-up with orthopedist. Denies any new fall or injury. Compliant with taking medication. Patient is neurovascularly intact. Ddx considered but are not limited to: foot fracture, foot sprain, foot contusion, foot strain Vital signs: are WNL, pt. is afebrile H&PE are most consistent with: Status post Rivera fracture, splint check ORDERS: None ED INTERVENTIONS: New splint was applied patient felt better, neurovascularly intact after application of the splint. DISCHARGE: At this time pt. is stable for d/c to home. Will provide printed patient care instructions, and any necessary prescriptions. Care plan and follow up instructions have been discussed with the patient prior to discharge. Gave patient contact information to orthopedic urgent care, asked patient to follow primary doctor for referral to orthopedist, if worsening symptoms return to the emergency room Last Vital Signs Date Time Temp Pulse Resp B/P (MAP) Pulse Ox O2 Delivery O2 Flow Rate FiO2 07/14/20 12:00 98.1 96 20 155/63 (93) 98 Room Air Disposition: HOME, SELF-CARE Condition: Stable Patient Instructions: Cast or Splint Care, [id number] Additional Instructions: Follow-up with orthopedist, wear an ankle boot, if worsening symptoms return to the emergency room Mariel Dawn Jul 14, 2020 12:39
[2020-07-14 12:45] VITALS: BP 151/59
== END 2020-07-14 12:45 | disposition home or self-care (01) ==
LOC: EMR 12:26
DX: R20.0 Anesthesia of skin (principal)
CPT/HCPCS: 29515; 99282